=== PATIENT | female | born 1960 | race Caucasian/White ===

== ENCOUNTER → 2022-08-10 10:28 | Outpatient (BNVA) | payer MEDICARE, MEDICAID, SELFPAY | PROVIDERS: PCP Internal Medicine; Visit Provider Internal Medicine | DX: I25.10 Atherosclerotic heart disease of native coronary artery without angina pectoris (principal); E78.5 Hyperlipidemia, unspecified; E11.8 Type 2 diabetes mellitus with unspecified complications | CPT/HCPCS: 93005; 99202 ==

== ENCOUNTER 2022-11-24 16:27 | Outpatient (REF) | payer OTHER, SELFPAY ==
[2022-11-24 18:03] LABS: Creatinine Urine 85.35 mg/dL; Microalbumin Urine < 5.0 mg/L
== END 2022-11-24 16:28 | disposition home or self-care (01) ==
LOC: HO.LAB 16:27
PROVIDERS: Visit Provider Nurse Practitioner Family
DX: R30.0 Dysuria (principal); E11.8 Type 2 diabetes mellitus with unspecified complications
CPT/HCPCS: 82043; 87086

== ENCOUNTER → 2022-12-15 08:35 | Outpatient (REF) | payer OTHER, SELFPAY ==
--- NOTE | ~2022-12-15 | NM_ITS ---
Myocardial perfusion study Indication: Precordial chest pain to evaluate for myocardial ischemia Technique: The patient was brought in for a Lexiscan perfusion study on 12/15/2022. Patient performed low-level exercise and was injected 0.4 mg of Lexiscan intravenously. Within a minute of injection, 25 mCi of sestamibi was given intravenously. Images were obtained using the SPECT gamma camera interlaced with the gating device. Images were obtained in supine position. Resting perfusion study was performed on 12/19/2022. Patient was administered 25 mCi of sestamibi intravenously at rest. Images were then obtained in supine position. Images obtained with and without CT attenuation. Total DLP 98 mGy-cm. Images were processed with the software and compared side to side in short axis, horizontal long axis and vertical long axis views. Findings: The stress perfusion study showed non attenuated images show normal uptake of radiotracer in all segments of LV myocardium. Attenuation corrected images show mildly reduced uptake in the apex of the LV myocardium. The gated study shows normal LV systolic function with calculated LVEF of 63%. LV cavity is normal in size. The gated study shows normal systolic wall thickening and contraction of segments. Resting study shows attenuated corrected images show mildly reduced uptake in the apex of the LV myocardium. Gating at rest reveals normal systolic wall motion with ejection fraction at 66%. The findings are consistent with normal myocardial perfusion. NM/NM karis perf SPECT rest & str Impression: 1. Myocardial perfusion imaging study shows normal myocardial perfusion 2. Gated LVEF is 63% 3. Transient ischemic dilatation not present EKG is nondiagnostic for ischemia
--- NOTE | 2022-12-15 08:41 | CA_ITS ---
Acquisition Time: 2022-12-15 10:15:24 Total Exercise Time: 00:02:00 Test Indications: CP Medications: ASA ATORVASTATIN GABAPENTIN ENALAPRIL METFORMIN Protocol: LEXISCAN Max HR: 148 BPM 93% of Pred: 159 BPM Max BP: 124/068 mmHG Max Work Load: 1.0 METS Pharmacological stress test with Lexiscan injection while sitting and kicking her legs, without anginal symptoms, without arrhythmias, with normotensive response to injection, without EKG changes. Aminophylline 75mg IVP given to reverse Lexiscan. Nuclear images pending. Test reviewed with Dr. Blue. Referred By: Jeronimo Blackmon Overread By: VIRAL COON
--- NOTE | 2022-12-15 08:41 | CA_ITS ---
Transthoracic Echocardiogram Patient (Last, First, Middle): Caroline Licea, Gender: Female Date of : 1960 Age: 62 Procedure Date: 12/15/2022 Procedure Type: Transthoracic Echocardiogram Location: OP Height: 149.86 cm Weight: 65.77 kg BSA: 1.61 m2 Heart Rate: bpm BP: 130 / 70 mmHg Chemical Educator: TO Referring MD: Jeronimo Blackmon MD Symptoms: I25.10 - Atherosclerotic heart disease of [place] coronary artery without... Study Quality: Fair ECG Rhythm: Sinus Conclusions: - The left ventricular systolic function is normal. The calculated ejection fraction is 60% by biplane method. - No obvious valvular pathology seen on this study. Findings Left Ventricle Normal left ventricular cavity size. There is normal left ventricular wall thickness. The left ventricular systolic function is normal. The calculated ejection fraction is 60% by biplane method. There is no evidence of regional wall motion abnormalities. Diastolic function is normal for age. LV peak GLS -17.4%. Right Ventricle Normal right ventricular cavity size and systolic function. Atria Both atria are normal in size. Aortic Valve There is a normal trileaflet aortic valve. There is no aortic valve stenosis. There is no aortic valve regurgitation. Mitral Valve The mitral valve appears normal. There is trace mitral valve regurgitation. There is no mitral valve stenosis. Pulmonic Valve The pulmonic valve is likely normal. Tricuspid Valve Normal tricuspid valve structure. There is mild tricuspid valve regurgitation. There is no evidence of pulmonary hypertension. Great Vessels The asc aorta is normal in size. Small plaque is seen in the sino tubular ridge. Venous The inferior vena cava is normal in size and collapses greater than 50% with inspiration. Pericardium/Pleural There is no evidence of pericardial effusion. Prior Study Comparison No prior study available for comparison. Recommendations, Care & Conclusions No obvious valvular pathology seen on this study. Measurements 2D Linear Measurements IVSd: 0.91 0.6-0.9/0.6-1.0 cm LVIDd: 4.56 3.9-5.3/4.2-5.9 cm LVIDd Index: 2.83 2.4-3.2/2.2-3.1 cm/m2 LVIDs: 3.26 2.0-3.6 cm LVPWd: 0.61 0.7-1.1 cm LA Diam: 2.80 2.7-3.8/3.0-4.0 cm LAIDs Index: 1.74 1.5-2.3 cm/m2 LV Mass: 134.79 67-162/88-224 g LV Mass Index: 83.72 43-95/49-115 g/m2 LVOT Diam: 2.00 3.0+(-)1.3 cm 2D Systolic Function EF 4C: 56.40 >55% EF 2C: 63.90 >55% EF BiP: 59.60 >55% Mitral Valve MV Pk E: 0.51 MV PK A: 0.45 MV Decel Time: 234.00 E/A: 1.10 E'Lateral: 10.30 E'Medial: 8.92 E/E' Med: 5.70 E/E' Lat: 4.90 PHT: 69.00 MVA PHT: 3.19 Decel Motley: 2.16 Aortic Valve AoV Pk Evan: 1.19 AoV Mn Evan: 0.83 AoV VTI: 0.26 AoV Pk Grad: 6.00 Aov Mn Grad: 3.00 MANUEL Cont.VTI: 2.12 LVOT LVOT Pk Evan: 0.77 LVOT Mn Evan: 0.55 LVOT VTI: 0.18 LVOT Pk Grad: 2.00 LVOT Mn Grad: 1.00 LVOT Diam: 2.00 LVOT Area: 3.14 Diastolic Function MV Pk E: 0.51 MV Pk A: 0.45 E/A: 1.10 E'Medial: 8.92 E/E' Med: 5.70 E' Laterial: 10.30 E/E' Lat: 4.90 Right Ventricle TAPSE (mm): 21.20 TVS' Evan: 10.90 Tricuspid Valve TR Pk Evan: 2.40 TR Pk Grad: 23.00 RA Press: 3.00 RVSP: 26.00 Great Vessels Aorta Sinus of Valsalva: 2.72 2.0-3.[address] Ridge: 2.03 1.7-3.4 cm Ao Asc: 3.10 2.1-3.4 cm Updated in Other Vendor System with Status of Final Jeronimo Blackmon MD electronically signed on 12/15/2022 2:28:18 PM with status of Final
== END ==
LOC: HO.CARD 08:35
PROVIDERS: PCP Nurse Practitioner Family; Visit Provider Internal Medicine
DX: R07.2 Precordial pain (principal); I25.119 Atherosclerotic heart disease of native coronary artery with unspecified angina pectoris
CPT/HCPCS: 78452; 93017; 93306; 93356; A9500; J0280; J2785

== ENCOUNTER 2023-01-17 09:50 | Outpatient (REF) | payer OTHER, SELFPAY ==
[2023-01-17 10:08] LABS: MANUAL DIFF FLAG NO
[2023-01-17 10:27] LABS: Basophils Percent Auto 0.6 % (0-2); Eosinophils Absolute Auto 0.2 X10*3/uL (0.0-0.4); Eosinophils Percent Auto 4.2 % (0-4); Hematocrit 38.9 % (37.0-47.0); Hemoglobin 12.2 g/dl (12.0-16.0); Imm Gran Abs Auto 0.01 X10*3/uL (0.00-0.03); Imm Gran Pct Auto 0.2 % (0.0-0.4); Lymphocytes Absolute Auto 2.2 X10*3/uL (1.2-4.9); Lymphocytes Percent Auto 46.6 % (20-40); Mean Corpuscular HGB Conc 31.4 g/dl (31.0-35.0); Mean Corpuscular Hemoglobin 24.6 pg (27.0-33.0); Mean Corpuscular Volume 78.6 fL (80.0-98.0); Mean Platelet Volume 11.1 fL (9.4-12.3); Monocytes Absolute Auto 0.3 X10*3/uL (0.1-1.2); Monocytes Percent Auto 6.7 % (2-11); Neutrophils Percent Auto 41.7 % (45-73); Platelet Count 174 X10*3/uL (160-400); Red Blood Count 4.95 X10*6/uL (4.20-5.50); Red Cell Distribution Width 13.2 % (11.0-16.0); White Blood Count 4.8 X10*3/uL (4.8-10.8)
[2023-01-17 11:17] LABS: Alanine Aminotransferase 17 U/L (0-31); Albumin Level 4.3 g/dL (3.5-5.0); Alkaline Phosphatase 98 U/L (39-117); Anion Gap 12 (12-20); Aspartate Amino Transferase 18 U/L (5-31); Bilirubin Total 0.4 mg/dL (0.0-1.0); Blood Urea Nitrogen 18 mg/dL (9-16); Calcium 9.9 mg/dL (8.4-10.2); Carbon Dioxide 27 mmol/L (22-29); Chloride 105 mmol/L (96-108); Cholesterol 218 mg/dL; Estimated Glomerular Filt Rate > 60; Glucose Fasting 91 mg/dL (60-99); HDL Cholesterol 66 mg/dL; LDL Cholesterol Calculated 138 mg/dl; Sodium 140 mmol/L (135-145); Total Protein 7.7 g/dL (6.5-8.0); Triglycerides 74 mg/dL
[2023-01-17 11:34] LABS: TSH reflex Free T4 1.44 uIU/mL (0.32-4.0); Vitamin D 25-OH Total 27.2 ng/mL (>30)
[2023-01-17 11:47] LABS: Vitamin B12 205 pg/mL (200-900)
== END 2023-01-17 09:51 | disposition home or self-care (01) ==
LOC: HO.LAB 09:50
PROVIDERS: PCP Nurse Practitioner Family; Visit Provider Nurse Practitioner Family
DX: E11.8 Type 2 diabetes mellitus with unspecified complications (principal); E55.9 Vitamin D deficiency, unspecified; E78.5 Hyperlipidemia, unspecified; M54.2 Cervicalgia
CPT/HCPCS: 36415; 80053; 80061; 82306; 82607; 82746; 84443; 85025

== ENCOUNTER → 2023-01-24 12:57 | Outpatient (BNVA) | payer OTHER, MEDICAID, SELFPAY | PROVIDERS: PCP Nurse Practitioner Family; Referring Provider Nurse Practitioner Family; Visit Provider Nurse Practitioner Family | DX: I25.10 Atherosclerotic heart disease of native coronary artery without angina pectoris (principal); I10 Essential (primary) hypertension; E78.5 Hyperlipidemia, unspecified; E11.8 Type 2 diabetes mellitus with unspecified complications | CPT/HCPCS: 99212 ==

== ENCOUNTER 2023-01-27 14:00 | Outpatient (RCR) | payer OTHER, SELFPAY ==
--- NOTE | 2022-12-23 13:54 | MHC.OT.EP ---
[address] [phone] Occupational Therapy Plan of Care Patient Name: Caroline Licea Date of Evaluation: 12/23/22 Diagnosis: Bilateral carpal tunnel syndrome Pain Location: Bilateral hands. Left > right . Low pain at this time. Pain 2 weeks ago with writing and lifting with left hand 6/10 Pain Score: 3 Pain Scale Used: Numeric (0 - 10) Aggravating Factors: Heavy lifting or gripping , writing. Avoiding over the past 2 wks . Alleviating Factors: Gabapentin Assessment: Pt is a 62 yo female with a diagnosis of bilateral CTS. Today she presents with complaints of low moderate left hand pain , occasional hand paresthesia and demonstrates submax production grip and pinch strength She reports low motivation with exercise however states her goal is to have better hand strength and be pain free with lifting household items that have weight Extra time was required with translator/interpreter for specifics on sx and limitations Pt will benefit from OT to address pain and strength for ease with daily activities. Frequency and Duration: The patient will be seen 2 x wk x 4 wks Short Term Goals: Demo use of thermal modalities for CTS sx Demo indep with HEP with visual cues Tolerate eccentric UE ex with yellow Theraband ex To lift up to 3 lb frequently Manager Educational Goals: Demo indep with self management of CTS Dec complaint of pain and hand paresthesia to occasional Lift up to 5 lb occasionally Inc ease with daily activities with modifications as needed Quick DASH to < 20 pts Treatment Plan: Therapeutic Exercise Therapeutic Activity Home Exercise Program Splinting Patient Education ADL Training MHP Cold Packs Soft Tissue Mobilization Electronically Signed By: Sindi Monreal OT CHT CLT Please Sign and return to therapist. Thank you once again for your referral.
--- NOTE | 2023-01-20 15:22 | MHC.OT.EP ---
[address] [phone] Occupational Therapy Plan of Care Patient Name: Caroline Red Date of Evaluation: 01/20/23 Diagnosis: Bilateral carpal tunnel syndrome Pain Location: Bilateral hands. Left > right . Low pain at this time. Pain 2 weeks ago with writing and lifting with left hand 6/10 Pain Score: 3 Pain Scale Used: Numeric (0 - 10) Aggravating Factors: Heavy lifting or gripping , writing. Avoiding over the past 2 wks . Alleviating Factors: Gabapentin Assessment: Pt is a 62 yo female with a diagnosis of bilateral CTS. 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 Frequency and Duration: The patient will be seen 2x wk x 2 wks Short Term Goals: Demo use of thermal modalities for CTS sx MET Demo indep with HEP with visual cues Tolerate eccentric UE ex with yellow Theraband ex To lift up to 3 lb frequently Piling Cutter Goals: Demo indep with self management of CTS Dec complaint of pain and hand paresthesia to occasional Lift up to 5 lb occasionally Inc ease with daily activities with modifications as needed Quick DASH to < 20 pts Treatment Plan: Therapeutic Exercise Ultrasound Electronically Signed By: Sindi Monreal OT CHT CLT Please Sign and return to therapist. Thank you once again for your referral.
--- NOTE | 2023-01-27 14:54 | MHC.OT.DC ---
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 Reports pain radiating to left proximal arm , shoulder. Cont mild hand and forearm edema Reports constant paresthesias Unable to progress treatment for left CTS, pain with tendon and modified median nerve glides Left shoulder pain limiting LUE use and ther ex. Pt is indep with night orthosis for CTS sx and tendon and nerve glides ,limited by shoulder pain. Pt discussed her LUE pain including shoulder pain with PCP . Pt to be referred to Rheumatology for Fibromyalgia symptoms Pt not significantly benefiting from OT at this time. Electronically Signed By: Sindi Monreal OT CHT CLT Reviewed/agree with student documentation: Therapist: Please Sign and return to therapist, thank you for your referral.
== END 2023-01-27 14:59 | disposition home or self-care (01) ==
LOC: HO.OT 14:00
PROVIDERS: PCP Nurse Practitioner Family; Visit Provider Nurse Practitioner Family
DX: G56.03 Carpal tunnel syndrome, bilateral upper limbs (principal)
CPT/HCPCS: 29125; 97035; 97110; 97140; 97166; 97760

== ENCOUNTER 2023-03-03 15:37 | Outpatient (REF) | payer OTHER, SELFPAY ==
--- NOTE | ~2023-03-03 | MM_ITS ---
EXAMINATION: MM SCREENING DIGITAL BREAST TOMOSYNTHESIS, BILATERAL CLINICAL INFORMATION: Screening. Asymptomatic. The lifetime risk of breast cancer based on the Tyrer-Cuzick Model is 4.4%. COMPARISON: Mammography: There are no prior mammograms for comparison. TECHNIQUE: Digital breast tomosynthesis is performed in both the craniocaudal and mediolateral oblique views along with computer-aided detection (CAD). Synthesized 2D images are generated from the tomosynthesis. FINDINGS: The breasts are heterogeneously dense, which may obscure small masses (ACR BI-RADS breast composition Category c). There are no significant masses, abnormal calcifications, or other abnormalities. MM/MM tomosynthesis screening BI IMPRESSION: No mammographic evidence of malignancy. ASSESSMENT: BI-RADS BI-RADS 1 - Negative RECOMMENDATION: Routine annual mammography screening. 1 year F/U This examination should not preclude the clinical evaluation of a suspicious palpable abnormality. This patient's information was entered into a reminder system with a target due date for their next mammogram.
== END 2023-03-03 15:38 | disposition home or self-care (01) ==
LOC: HO.MAMMO 15:37
PROVIDERS: PCP Nurse Practitioner Family; Visit Provider Nurse Practitioner Family
DX: Z12.31 Encounter for screening mammogram for malignant neoplasm of breast (principal)
CPT/HCPCS: 77063; 77067

== ENCOUNTER → 2023-03-03 15:45 | Outpatient (BNV) | payer OTHER, SELFPAY | PROVIDERS: PCP Nurse Practitioner Family; Visit Provider Radiology Diagnostic Radiology | DX: Z12.31 Encounter for screening mammogram for malignant neoplasm of breast (principal) | CPT/HCPCS: 77063; 77067 ==

== ENCOUNTER 2023-03-08 10:14 | Outpatient (AMB) | payer OTHER, SELFPAY ==
--- NOTE | 2023-03-08 10:40 | A.OFFVIS_ITS ---
Intake Vital Signs 03/08/23 10:46 Height 4 ft 11 in Weight 146 lb BMI 29.5 BP 100/79 Blood Pressure Location Lt brachial Position Sitting Respiration 15 Pulse 84 Pulse Source Pulse Oximeter Temp 97.9 F Temp Source Skin Pulse Oximetry (%) 96 Oxygen Delivery Method Room Air Intake Visit Reasons: Joint Pain Relay Dispatcher Required: Yes Relay Dispatcher Name: Tae [id number] Allergies No Known Allergies [No Known Allergies*] Allergy (Verified 03/08/23 10:41) Medication List - Last Reconciled 03/08/23 by Shilpa Cristobal RN alcohol swabs (Alcohol Prep Pads) 1 pad topical TID aspirin 81 mg PO DAILY atorvastatin 80 mg PO DAILY blood pressure monitor (Blood Pressure Kit) As directed blood sugar diagnostic (OneTouch Ultra Test strips) As directed blood-glucose meter (JobzippersTouch Ultra2 Meter) As directed cholecalciferol (vitamin D3) 25 mcg PO DAILY enalapril maleate 2.5 mg PO DAILY gabapentin 600 mg PO DAILY lancets (FreeStyle Lancets) test daily metformin 500 mg PO DAILY miscellaneous medical supply 1 ea miscellaneous DAILY sertraline 25 mg PO DAILY Shower Chair As directed temazepam 30 mg PO BEDTIME PRN HPI HPI Comments History of Present Illness Details This is a 62-year-old female was referred for evaluation of fibromyalgia. She states that she was diagnosed with fibromyalgia in 2011 in [place]. She was started on gabapentin 600 mg daily and she would take temazepam at night. She took gabapentin for years and she stopped it about a year ago when [place] the [place] She did not feel a difference in her symptoms when stopping it. Currently she is complaining of neck pain radiating to her left shoulder and left hand. She has pain in her knees with walking. She was referred to a psychologist and a psychiatrist by her PCP. She stated that she had a psychiatrist and a psychologist back in [place]. [facility] Medical History Other and unspecified hyperlipidemia Type 2 diabetes mellitus with unspecified complications Surgical History History of cholecystectomy History of colonoscopy Previous section Family History Mother Hypertension Thyroid activity decreased Rheumatoid arthritis Father Coronary artery disease Diabetes mellitus Brother Arrhythmia Social History Housing: Apartment Alcohol intake: never Patient Tobacco Use Status: Never used Tobacco service: No Current occupational status: unemployed Cognitive needs: No Hearing needs: No Vision needs: No Female Reproductive History Menstrual Total pregnancies: 3 Review of Systems Const Reports headache(s) Eyes Reports itchy eyes ENT Reports dizziness, Reports headache(s) and Reports neck pain GI Reports heartburn, Reports diarrhea and Reports nausea Musc Reports back pain, Reports myalgias, Reports arthralgias, Reports neck pain and Reports stiffness Neuro Reports dizziness and Reports headache(s) Psych Reports anxiety and Reports depression Aller/Immun Reports itchy eyes Physical Exam Vital Signs: Last Vital Signs Temp 97.9 F 03/08/23 10:46 Pulse 84 03/08/23 10:46 Resp 15 03/08/23 10:46 BP 100/79 03/08/23 10:46 Pulse Ox 96 03/08/23 10:46 Oxygen Delivery Method Room Air 03/08/23 10:46 Const General: cooperative and healthy appearing Nutritional Appearance: overweight Orientation/consciousness: patient oriented x3 Limitations: no limitations HEENT Head: Yes normocephalic and Yes atraumatic Mouth: moist mucous membranes Resp Effort & Inspection: normal respiratory effort and able to speak in complete sentences Auscultation: clear to auscultation bilaterally Cardio Rate: regular rate Rhythm: regular rhythm Skin General skin exam: no rashes or lesions noted Neuro General: patient oriented x3 Extrem Other: No active synovitis. Limited neck rotation, flexion and extension and lateral flexion Negative Spurling's test Multiple fibromyalgia tender points No active synovitis bilateral knee crepitus Assessment & Plan Assessment & Plan (1) Fibromyalgia: Code(s): M79.7 - Fibromyalgia Plan: This is a 62-year-old female who was referred for evaluation of fibromyalgia. She 0 was diagnosed with fibromyalgia in [place] since 2011. Was taking gabapentin 600 mg daily and temazepam nightly. She has not taken gabapentin for about a year without worsening symptoms. Discussed management of fibromyalgia with patient. Is a noninflammatory, non- autoimmune central afferent processing disorder leading to a diffuse pain syndrome. Patient was referred to a psychiatrist and psychologist by her PCP. . Try to follow sleep hygiene practices. Consider a referral for a sleep study by her PCP. Discuss CBT for sleep with psychotherapist. Patient would benefit from increased physical activity, either through formal physical therapy or by joining a gym. Advised patient that she should start activity slowly and increase as tolerated. Consider low-impact exercises such as walking, swimming, aqua therapy stretching, yoga. (2) Degenerative cervical disc: Code(s): M50.30 - Other cervical disc degeneration, unspecified cervical region Plan: Check a neck x-ray Referred to PT (3) Bilateral primary osteoarthritis of knee: Code(s): M17.0 - Bilateral primary osteoarthritis of knee Plan: Check bilateral knee x-rays and advised patient to try using [id number] Voltaren gel Plan I spent 46 minutes reviewing patient's chart, evaluating patient, ordering diagnostic workup, counseling patient and documenting in the chart Orders: Orders PT Evaluation and Treatment Today M50.30 - Other cervical disc degeneration, unspecified cervical region XR cervical spine 4V Today M50.30 - Other cervical disc degeneration, unspecified cervical region XR lumbar spine 4V min Today G89.29 - Other chronic pain, M54.50 - Low back pain, unspecified XR knee LT 3V Today M17.0 - Bilateral primary osteoarthritis of knee XR knee RT 3V Today M17.0 - Bilateral primary osteoarthritis of knee XR knee standing BI Today M17.0 - Bilateral primary osteoarthritis of knee Coding Level of Care Code New Pt Level 4 (59228) Diagnoses Fibromyalgia M79.7 Degenerative cervical disc M50.30 Bilateral primary osteoarthritis of knee M17.0
[2023-03-08 10:46] VITALS: BP 100/79; PULSE 84; RESP 15; TEMP 36.6; O2SAT 96; BMI 29.5
== END 2023-03-08 11:29 | disposition home or self-care (01) ==
PROVIDERS: PCP Nurse Practitioner Family; Visit Provider Student in an Organized Health Care Education/Training Program
DX: M79.7 Fibromyalgia (principal); M50.30 Other cervical disc degeneration, unspecified cervical region; M17.0 Bilateral primary osteoarthritis of knee
CPT/HCPCS: 99204

== ENCOUNTER → 2023-03-08 10:14 | Outpatient (BNVA) | payer OTHER, SELFPAY | PROVIDERS: PCP Nurse Practitioner Family; Visit Provider Student in an Organized Health Care Education/Training Program | DX: M79.7 Fibromyalgia (principal); M50.30 Other cervical disc degeneration, unspecified cervical region; M17.0 Bilateral primary osteoarthritis of knee | CPT/HCPCS: 99202 ==

== ENCOUNTER 2023-03-31 14:05 | Outpatient (REF) | payer OTHER, SELFPAY ==
--- NOTE | ~2023-03-31 | XR_ITS ---
EXAMINATION: XR LUMBOSACRAL SPINE WITH OBLIQUES CLINICAL INFORMATION: Low back pain COMPARISON: None available. TECHNIQUE: AP, both oblique, and lateral views of the lumbar spine. Lateral view of the lumbosacral junction. FINDINGS: There is curvature of the lower lumbar spine to the left. Bone alignment is otherwise normal. No fracture or dislocation. Degenerative disc disease and spondylosis at L4-L5. Lower lumbar spine facet arthritis. XR/XR lumbar spine 4V min IMPRESSION: Scoliosis and degenerative changes.
--- NOTE | ~2023-03-31 | XR_ITS ---
EXAMINATION: XR CERVICAL SPINE CLINICAL INFORMATION: Degenerative disc disease COMPARISON: None available. TECHNIQUE: 5 views of the cervical spine were obtained. FINDINGS: Bone alignment is normal. No fracture or dislocation. Degenerative spondylosis at C 5 6 and C6-C7. Disc spaces are normal. Mild bilateral neuroforaminal narrowing from bony osteophyte at C5-C6. Prevertebral soft tissues are normal. XR/XR cervical spine 4V IMPRESSION: Degenerative spondylosis at C5-C6 and C6-C7.
--- NOTE | ~2023-03-31 | XR_ITS ---
EXAMINATION: Bilateral knee x-ray CLINICAL INFORMATION: Pain COMPARISON: None. TECHNIQUE: 4 views of each knee FINDINGS: Right: Bone alignment is normal. No fracture or dislocation. There is joint space narrowing at the medial femoral tibial joint. There are small osteophytes at the patellofemoral joint. There is no joint effusion. Left: Bone alignment is normal. No fracture or dislocation. Joint space narrowing at the medial femoral tibial joint. There are small osteophytes at the patellofemoral joint. There is no joint effusion. XR/XR knee RT 4V IMPRESSION: Bilateral arthritis at the medial femoral tibial and patellofemoral joints.
--- NOTE | ~2023-03-31 | XR_ITS ---
EXAMINATION: Bilateral knee x-ray CLINICAL INFORMATION: Pain COMPARISON: None. TECHNIQUE: 4 views of each knee FINDINGS: Right: Bone alignment is normal. No fracture or dislocation. There is joint space narrowing at the medial femoral tibial joint. There are small osteophytes at the patellofemoral joint. There is no joint effusion. Left: Bone alignment is normal. No fracture or dislocation. Joint space narrowing at the medial femoral tibial joint. There are small osteophytes at the patellofemoral joint. There is no joint effusion. XR/XR knee LT 3V IMPRESSION: Bilateral arthritis at the medial femoral tibial and patellofemoral joints.
== END 2023-03-31 14:06 | disposition home or self-care (01) ==
LOC: HO.XRAY 14:05
PROVIDERS: Visit Provider Student in an Organized Health Care Education/Training Program
DX: G89.29 Other chronic pain (principal); M54.50 Low back pain, unspecified; M50.30 Other cervical disc degeneration, unspecified cervical region; M17.0 Bilateral primary osteoarthritis of knee
CPT/HCPCS: 72050; 72110; 73562; 73564

== ENCOUNTER → 2023-04-12 12:41 | Outpatient (BNVA) | payer OTHER, SELFPAY | PROVIDERS: PCP Nurse Practitioner Family; Visit Provider Nurse Practitioner Family ==

== ENCOUNTER 2023-04-17 10:32 | Outpatient (REF) | payer OTHER, SELFPAY ==
[2023-04-17 11:25] LABS: Estimated Average Glucose 111 mg/dL; Hemoglobin A1c % 5.5 % (<6.0)
[2023-04-17 12:43] LABS: Alanine Aminotransferase 19 U/L (0-31); Albumin Level 4.5 g/dL (3.5-5.0); Alkaline Phosphatase 99 U/L (39-117); Anion Gap 13 (12-20); Aspartate Amino Transferase 22 U/L (5-31); Bilirubin Total 0.3 mg/dL (0.0-1.0); Blood Urea Nitrogen 13 mg/dL (9-16); Carbon Dioxide 26 mmol/L (22-29); Chloride 104 mmol/L (96-108); Cholesterol 207 mg/dL (<200); Estimated Glomerular Filt Rate > 60; Glucose Fasting 92 mg/dL (60-99); HDL Cholesterol 74 mg/dL (>40); LDL Cholesterol Calculated 115 mg/dL (<100); Potassium 4.1 mmol/L (3.3-5.1); Sodium 139 mmol/L (135-145); Total Protein 8.1 g/dL (6.5-8.0); Triglycerides 94 mg/dL (<150); Vitamin D 25-OH Total 25.5 ng/mL (>30)
== END 2023-04-17 10:33 | disposition home or self-care (01) ==
LOC: HO.LAB 10:32
PROVIDERS: PCP Nurse Practitioner Family; Visit Provider Nurse Practitioner Family
DX: I25.10 Atherosclerotic heart disease of native coronary artery without angina pectoris (principal); R79.89 Other specified abnormal findings of blood chemistry; E11.8 Type 2 diabetes mellitus with unspecified complications; E55.9 Vitamin D deficiency, unspecified
CPT/HCPCS: 36415; 80053; 80061; 82306; 83036

== ENCOUNTER 2023-04-26 14:11 | Outpatient (AMB) | payer OTHER, SELFPAY ==
[2023-04-26 14:12] VITALS: BP 102/68; PULSE 70; O2SAT 99; BMI 30.1
--- NOTE | 2023-04-26 14:12 | MHC.PC.OV ---
Vital Signs 04/26/23 14:12 Height 4 ft 11 in Weight 149 lb BMI 30.1 BP 102/68 Blood Pressure Location Lt brachial Position Sitting Pulse 70 Pulse Source Pulse Oximeter Temp Source Skin Pulse Oximetry (%) 99 Oxygen Delivery Method Room Air Intake Visit Reasons: F/U on DM, HLD, HTN Intake Note: Patient is here to follow up on DM, HLD, HTN [employer] Liaison Officer Required: Yes Aboriginal [employer] Liaison Officer Language: Wallisian Allergies No Known Allergies [No Known Allergies*] Allergy (Verified 04/26/23 14:30) Medication List - Last Reconciled 04/26/23 by RENETTA Alexander alcohol swabs (Alcohol Prep Pads) 1 pad topical TID aspirin 81 mg PO DAILY atorvastatin 80 mg PO DAILY bisacodyl (Dulcolax (bisacodyl)) 10 mg (2 x 5 mg) PO ONCE 1 day blood pressure monitor (Blood Pressure Kit) As directed blood sugar diagnostic (OneTouch Ultra Test strips) As directed blood-glucose meter ([employer] SoftwareTouch Ultra2 Meter) As directed cholecalciferol (vitamin D3) 25 mcg PO DAILY enalapril maleate 2.5 mg PO DAILY gabapentin 600 mg PO DAILY lancets (FreeStyle Lancets) test daily metformin 500 mg PO DAILY miscellaneous medical supply 1 ea miscellaneous DAILY polyethylene glycol 3350 (Miralax) 238 grams PO ONCE sertraline 25 mg PO DAILY Shower Chair As directed temazepam 30 mg PO BEDTIME PRN Tobacco use date assessed: 04/26/23 Dental Screening Dental Screen Date: 04/26/23 Did you have a dental visit in the last 12 months?: Yes Did you have a dental problem in the last 6 months where you did not have access to dental care?: No Was dental information given to patient?: Patient has dentist HPI F/U on DM, HLD, HTN HPI Details Patient is a 62-year-old female presents today for a routine follow-up. Medical history significant for atherosclerotic cardiovascular disease - patient reports history of heart attack when having cholecystectomy in [place] - followed by [facility], hyperlipidemia, diabetes type 2, insomnia, depression, fibromyalgia, polyarthralgia - followed by rheumatology. Patient has counseling at [facility], patient reports that she is on waiting list for psychiatrist.? Patient denies shortness of breath or chest pain. In addition, patient reports left thigh lateral aspect pain for the past couple weeks, she denies injury, reports that gabapentin and advil not helping much, reports history of injection in the past back in 2013 for the same reason. Recent blood work results from 03/2023 reviewed with the patient. Patient is a Wallisian-speaking and online full time staff interpreter [id number] was incorporated into this visit. ? [facility] Medical History Other and unspecified hyperlipidemia Type 2 diabetes mellitus with unspecified complications Surgical History History of colonoscopy Previous section History of cholecystectomy Family History Mother Hypertension Thyroid activity decreased Rheumatoid arthritis Father Coronary artery disease Diabetes mellitus Brother Arrhythmia Social History Housing: Apartment Alcohol intake: never Patient Tobacco Use Status: Never used Tobacco service: No Current occupational status: unemployed Cognitive needs: No Hearing needs: No Vision needs: No Questionnaire Thrive Questionnaire Date Thrive assessed: 11/24/22 AUDIT C Alcohol Use Questionnaire (AUDIT-C) 1. How often do you have a drink containing alcohol?: Never 3. How often do you have six or more drinks on one occasion?: Never Total Score: 0 Score Reviewed/Action Taken: No NOREEN-7 AMB Questionnaire NOREEN-7 Date NOREEN - 7 assessed: 01/24/23 (pt is seeing psychiatrist) Source: Developed by Drs. Nate Mason, Edie Marcos, Lisandro Quevedo and colleagues, with an educational miriam from [employer]. Review of Systems Const Denies body aches, Denies chills, Denies fever(s) and Denies headache(s) Eyes Denies change in vision ENT Denies dizziness, Denies otalgia, Denies headache(s), Denies nasal discharge, Denies sinus pain and Denies sore throat Card Denies chest pain, Denies edema, Denies lightheadedness and Denies dyspnea Resp Denies cough and Denies dyspnea GI Denies constipation, Denies diarrhea, Denies nausea and Denies vomiting Musc Reports as per HPI, Denies myalgias and Reports arthralgias Skin/Breast Denies lesions and Denies rash Neuro Denies dizziness and Denies headache(s) Physical exam (Primary Care) Vital Signs: Last Vital Signs Pulse 70 04/26/23 14:12 BP 102/68 04/26/23 14:12 Pulse Ox 99 04/26/23 14:12 Oxygen Delivery Method Room Air 04/26/23 14:12 BMI result Body Mass Index 30.1 Tobacco/Smoking Status: Tobacco use Status Tobacco use date assessed 04/26/23 04/26/23 14:13 Patient Tobacco Use Status Never used Tobacco 04/26/23 14:13 Thrive Assessment: Date of Thrive Assessment Date Thrive assessed 11/24/22 04/26/23 14:13 Const General: cooperative and no acute distress Orientation/consciousness: patient oriented x3 HENMT Head: Yes normocephalic and Yes atraumatic Face and sinus: Yes sinuses nontender Mouth: oropharynx normal and moist mucous membranes Throat: Yes posterior oropharynx normal Eyes General: appearance normal, both eyes and all related structures Pupils: Equal, round and reactive pupils present EOM: EOMs intact bilaterally Neck Neck: Yes normal visual inspection, Yes full ROM and Yes no lymphadenopathy Resp Effort & Inspection: normal respiratory effort and able to speak in complete sentences Auscultation: clear to auscultation bilaterally, no crackles, no rales, no rhonchi and no wheezes Cardio Rate: regular rate Rhythm: regular rhythm Heart sounds: S1 normal heart sound present, S2 normal heart sound present and no murmurs GI Auscultation: normal bowel sounds Skin General skin exam: no rashes or lesions noted Neuro General: patient oriented x3 Cranial nerves: Yes Equal, round and reactive pupils present Gait exam (Neuro): Normal gait present Extrem Other: Left thigh tender to palpation, full range of motion General: Yes full ROM and No edema Assessment and Plan Assessment & Plan (1) Fibromyalgia: Code(s): M79.7 - Fibromyalgia Plan: On gabapentin 600 mg daily - patient reports that she takes gabapentin as needed only (2) Depression: Code(s): F32.A - Depression, unspecified Qualifiers: Depression Type: other depression Qualified Code(s): F32.89 - Other specified depressive episodes Plan: Continue to follow-up with savage Morley at [facility], on waiting list for Psychiatry Continue sertraline 25 mg daily (3) Insomnia: Code(s): G47.00 - Insomnia, unspecified Plan: Continue to follow-up with counseling Milli at [facility], on waiting list for Psychiatry Temazepam 30 mg at bedtime p.r.n.-educated about depends and seen memory loss - prescribed by PCP until established with Psychiatry (4) Type 2 diabetes mellitus with unspecified complications: Code(s): E11.8 - Type 2 diabetes mellitus with unspecified complications Plan: A1c 5.5 03/2023 Continue metformin 500 mg daily Low carbohydrate diet Patient reports that she is scheduled for diabetic eye exam for 03/2024 (5) Other and unspecified hyperlipidemia: Code(s): E78.5 - Hyperlipidemia, unspecified Plan: LDL 115 03/2023, goal less than 70 Continue atorvastatin to 80 mg daily Low-cholesterol diet (6) Atherosclerotic cardiovascular disease: Code(s): I25.10 - Atherosclerotic heart disease of [place] coronary artery without angina pectoris Plan: Aspirin 81 mg daily Atorvastatin 80 mg daily Continue to follow-up with [facility] (7) Hypertension: Code(s): I10 - Essential (primary) hypertension Plan: Enalapril 2.5 mg daily Low-sodium diet (8) Low vitamin D level: Code(s): R79.89 - Other specified abnormal findings of blood chemistry Plan: Continue vitamin D3 25 mcg daily Recheck level in 3 months (9) Left thigh pain: Code(s): M79.652 - Pain in left thigh Plan: Referral to physical therapy Referral to Orthopedics Start cyclobenzaprine at bedtime p.r.n.-educated about drowsiness Patient is to continue gabapentin Encouraged heating packs p.r.n. Plan Follow-up in 3 months or sooner as needed Orders: Orders Lipid Panel 3 Months E78.5 - Hyperlipidemia, unspecified Hemoglobin A1c 3 Months E11.8 - Type 2 diabetes mellitus with unspecified complications PT Evaluation and Treatment Today M79.652 - Pain in left thigh Vitamin D 25-OH Total 3 Months R79.89 - Other specified abnormal findings of blood chemistry Comprehensive [place]. Panel Fast 3 Months E11.8 - Type 2 diabetes mellitus with unspecified complications Referrals Orthopedics Referral M79.652 - Pain in left thigh Medications: New aspirin 81 mg PO DAILY 90 tabs 2RF I25.10 - Atherosclerotic heart disease of [place] coronary artery without angina pectoris cyclobenzaprine 5 mg PO BEDTIME PRN 10 tabs 0RF muscle spasm M79.652 - Pain in left thigh enalapril maleate 2.5 mg PO DAILY 90 tabs 1RF I10 - Essential (primary) hypertension gabapentin 600 mg PO DAILY 30 tabs 0RF M79.7 - Fibromyalgia Refilled sertraline 25 mg PO DAILY 90 tabs 1RF F32.A - Depression, unspecified atorvastatin 80 mg PO DAILY 90 tabs 1RF E78.5 - Hyperlipidemia, unspecified cholecalciferol (vitamin D3) 25 mcg PO DAILY 90 tabs 0RF R79.89 - Other specified abnormal findings of blood chemistry metformin 500 mg PO DAILY 90 tabs 0RF E11.8 - Type 2 diabetes mellitus with unspecified complications Coding Level of Care Code Est Pt Level 4 (55224) Diagnoses Fibromyalgia M79.7 Other depression F32.89 Depression Type: other depression Insomnia G47.00 Type 2 diabetes mellitus with unspecified complications E11.8 Other and unspecified hyperlipidemia E78.5 Atherosclerotic cardiovascular disease I25.10 Hypertension I10 Low vitamin D level R79.89 Left thigh pain M79.652
== END 2023-04-26 14:54 | disposition home or self-care (01) ==
PROVIDERS: PCP Nurse Practitioner Family; Visit Provider Nurse Practitioner Family
DX: M79.7 Fibromyalgia (principal); F32.89 Other specified depressive episodes; G47.00 Insomnia, unspecified; E11.8 Type 2 diabetes mellitus with unspecified complications; E78.5 Hyperlipidemia, unspecified; I25.10 Atherosclerotic heart disease of native coronary artery without angina pectoris; I10 Essential (primary) hypertension; R79.89 Other specified abnormal findings of blood chemistry; M79.652 Pain in left thigh
CPT/HCPCS: 99214

== ENCOUNTER 2023-05-25 10:03 | Outpatient (AMB) | payer OTHER, SELFPAY ==
--- NOTE | 2023-05-25 10:05 | A.OFFVIS_ITS ---
Intake Vital Signs 05/25/23 10:09 Height 4 ft 11 in Weight 149 lb BMI 30.1 Intake Visit Reasons: Pain in left thigh Intake Note: Caroline skelton 62 year old female presents today as a new patient with complaint of left thigh pain. Patient reports intermittent pain at the lateral aspect of upper leg for years. Denies injury. No previous tx. Finds very little to no relief with advil or gabapentin. Networks Software Consultant Name: Alison ID#[id number] Allergies No Known Allergies [No Known Allergies*] Allergy (Verified 05/25/23 10:10) HPI Pain in left thigh HPI Details 62-year-old female who presents to the [facility] today with an marketing operations consultant for evaluation of left thigh pain. She states she has intermittent pain at the lateral aspect of her thigh which is aggravated with stair use and at night. She also c/o occasional numbness and tingling in her thigh which radiates in her left leg. She denies any groin pain, lower back pain or recent injury and has not had any treatment in the past. She finds minimal pain with Advil and gabapentin. She had an injection in the past which did not provide her any relief. She has a history of diabetes. Her sugar level is well controlled. [facility] Medical History Other and unspecified hyperlipidemia Type 2 diabetes mellitus with unspecified complications Surgical History History of colonoscopy Previous section History of cholecystectomy Family History Mother Hypertension Thyroid activity decreased Rheumatoid arthritis Father Coronary artery disease Diabetes mellitus Brother Arrhythmia Social History Housing: Apartment Alcohol intake: never Patient Tobacco Use Status: Never used Tobacco service: No Current occupational status: unemployed Cognitive needs: No Hearing needs: No Vision needs: No Review of Systems Const All systems reviewed & are unremarkable except as noted in HPI and below Physical Exam Vital Signs: BMI result Body Mass Index 30.1 Const General: cooperative, healthy appearing, comfortable, no acute distress, well developed and alert Orientation/consciousness: patient oriented x3 HEENT Head: Yes normal to inspection, Yes normocephalic and Yes atraumatic Eyes General: appearance normal, both eyes and all related structures Neck Neck: Yes normal visual inspection and Yes no lymphadenopathy Resp Effort & Inspection: normal respiratory effort and able to speak in complete sentences Cardio Rate: regular rate Peripheral pulses: Peripheral pulses 2+ throughout GI Inspection: Yes normal to inspection Palpation (GI): Soft to palpation Skin General skin exam: no rashes or lesions noted Neuro General: patient oriented x3 Extrem Other: Left hip: Normal to inspection. No pain with ROM of the hip. Pain along the greater trochanter. No pain with hip flexion or abduction. Negative tenderness along the SI joint, negative SLR. NVI. Psych Appearance: grossly normal Mental Status: mental status grossly normal Office Procedures Joint Injection/Drain Joint Injection/Drain Details: left trochanteric bursa Prep: site was prepped using aseptic technique, ethochloride spray was applied and injection warnings given Injected: 40 mg of, DepoMedrol, with 8 mL of and 1% plain lidocaine Procedure: The patient tolerated the procedure well and there was some relief with the local anesthesia Coding 53725 - Glenohumeral/Tronchanteric Bursa/Intraarticular Procedure code (CPT) selection complete Results Reviewed Results Reviewed: 05/25/23 10:25 Lidocaine HCl 2 % MPF [Xylocaine 2 % MPF] 5 ml .ROUTE .STK-MED ONE methylPREDNISolone acetate [DEPO-MedroL] 40 mg .ROUTE .STK-MED ONE Assessment & Plan Assessment & Plan (1) Trochanteric bursitis, left hip: Code(s): M70.62 - Trochanteric bursitis, left hip Plan We discussed options today which include steroid injection. They did consent to move forward with the injection, which was tolerated well. I recommended rest, ice and elevation and OTC anti-inflammatories PRN for discomfort. She was also given an order for physical therapy with some home exercises in the office to day. We also discussed their diabetes and the effect the steroid can have on their blood glucose levels; therefore, they will continue to monitor these very closely over the next 72 hours. If there are any concerns, they should report to the ED immediately. Orders: Orders PT Evaluation and Treatment Today M70.62 - Trochanteric bursitis, left hip Patient Instructions: Scribed for Aura Alvarado PA-C, by shelton Perez scribe, on 05/25/2023. Aura Jansen PA-C, have personally reviewed and agree with the information entered by the scribe. Coding Level of Care Code New Pt Level 3 (65194) Diagnoses Trochanteric bursitis, left hip M70.62 CPT Codes Coding - Joint 7: 66510 - Glenohumeral/Tronchanteric Bursa/Intraarticular ([id number])
[2023-05-25 10:09] VITALS: BMI 30.1
== END 2023-05-25 10:42 | disposition home or self-care (01) ==
PROVIDERS: PCP Nurse Practitioner Family; Visit Provider Physician Assistant
DX: M70.62 Trochanteric bursitis, left hip (principal)
CPT/HCPCS: 20610; 99203

== ENCOUNTER → 2023-05-25 10:03 | Outpatient (BNVA) | payer OTHER, SELFPAY | PROVIDERS: PCP Nurse Practitioner Family; Visit Provider Physician Assistant | DX: M70.62 Trochanteric bursitis, left hip (principal) | CPT/HCPCS: 20610; 99202; J1020 ==

== ENCOUNTER 2023-06-02 13:00 | Outpatient (RCR) | payer OTHER, SELFPAY ==
--- NOTE | 2023-07-11 11:26 | MHC.PT.DC ---
[facility] [place] Office [place] Office [place] Office [address] Maria Antonia Nava [address] [phone] F: [phone] F: [phone] F: [phone] F: [phone] Physical Therapy Discharge Report Diagnosis: cervical degenerative disc disease (MD Dx) LEFT cervical radiculopathy and LEFT shoulder adhesive capsulitis (PT Dx) Date of Surgery: Date of Evaluation: 03/31/23 Date of Discharge: 07/11/23 Treatments to Date: 6 Cancellations to Date: No Shows to Date: Discharge Status: Improved Function Independent with HEP Discharge Summary: Patient is discharged from PT at this time as she demonstrated improvement and had plans for discharge but did not make any more PT visits. The PT assessment during her last treatment on 06/02/23 reads, Pt reports improvement in overall sxs and mobility. Declines further rx as she reports she has not eaten and wants to go get some food as she is very hungry. Declined manual therapies. Anticipate d/c in 2 visits. Electronically signed by: Emma Juarez, PT, DPT Please sign and return to therapist. Thank you for your referral.
== END 2023-07-11 11:26 | disposition home or self-care (01) ==
LOC: HO.PT 13:00
PROVIDERS: PCP Nurse Practitioner Family; Visit Provider Student in an Organized Health Care Education/Training Program
DX: M50.30 Other cervical disc degeneration, unspecified cervical region (principal)
CPT/HCPCS: 97110; 97140; 97162

== ENCOUNTER 2023-07-12 12:23 | Outpatient (AMB) | payer OTHER, SELFPAY ==
--- NOTE | 2023-07-12 13:01 | MHC.OFFVIS ---
Intake Vital Signs 07/12/23 13:06 Height 4 ft 11 in Weight 149 lb 14.629 oz BMI 30.3 BP 102/70 Blood Pressure Location Rt brachial Position Sitting Pulse 76 Pulse Source Pulse Oximeter Temp 97.4 F Temp Source Skin Pulse Oximetry (%) 99 Oxygen Delivery Method Room Air Intake Visit Reasons: FMS Intake Note: Patient last seen 03/08/23, presents today for follow up and test results. Started PT. [employer] Systems Administrator Required: Yes [employer] Systems Administrator Name: Cody [id number] Information Interpreted: clinical only Accompanied by: Self / Same As Patient Allergies No Known Allergies [No Known Allergies*] Allergy (Verified 07/12/23 13:02) Medication List - Last Reconciled 07/12/23 by Marley George MD alcohol swabs (Alcohol Prep Pads) 1 pad topical TID aspirin 81 mg PO DAILY atorvastatin 80 mg PO DAILY bisacodyl (Dulcolax (bisacodyl)) 10 mg (2 x 5 mg) PO ONCE 1 day blood pressure monitor (Blood Pressure Kit) As directed blood sugar diagnostic (OneTouch Ultra Test strips) As directed blood-glucose meter (OneTouch Ultra2 Meter) As directed cholecalciferol (vitamin D3) 25 mcg PO DAILY duloxetine 30 mg PO DAILY enalapril maleate 2.5 mg PO DAILY escitalopram oxalate 5 mg PO DAILY gabapentin 600 mg PO DAILY hydroxyzine HCl 25 mg PO DAILY lancets (FreeStyle Lancets) test daily metformin 500 mg PO DAILY miscellaneous medical supply 1 ea miscellaneous DAILY polyethylene glycol 3350 (Miralax) 238 grams PO ONCE sertraline 25 mg PO DAILY Shower Chair As directed temazepam 30 mg PO BEDTIME PRN HPI HPI Comments History of Present Illness Details 62-year-old female with fibromyalgia and generalized osteoarthritis returns for follow-up. She stated that she did physical therapy for her left shoulder and left carpal tunnel, she stated that it did not help. She was evaluated by Orthopedics and received a steroid injection for left hip trochanteric bursitis. States that the left hip still hurts. She states that she will start PT for her knees soon. Initial history: This is a 62-year-old female was referred for evaluation of fibromyalgia. She states that she was diagnosed with fibromyalgia in 2011 in [place]. She was started on gabapentin 600 mg daily and she would take temazepam at night. She took gabapentin for years and she stopped it about a year ago when [place] moved [place] the [place] She did not feel a difference in her symptoms when stopping it. Currently she is complaining of neck pain radiating to her left shoulder and left hand. She has pain in her knees with walking. She was referred to a psychologist and a psychiatrist by her PCP. She stated that she had a psychiatrist and a psychologist back in [place]. [facility] Medical History Other and unspecified hyperlipidemia Type 2 diabetes mellitus with unspecified complications Surgical History History of colonoscopy Previous section History of cholecystectomy Family History Mother Hypertension Thyroid activity decreased Rheumatoid arthritis Father Coronary artery disease Diabetes mellitus Brother Arrhythmia Social History Housing: Apartment Alcohol intake: never Patient Tobacco Use Status: Never used Tobacco service: No Current occupational status: unemployed Cognitive needs: No Hearing needs: No Vision needs: No Review of Systems Musc Reports back pain, Reports myalgias, Reports arthralgias and Reports stiffness Physical Exam Vital Signs: Last Vital Signs Temp 97.4 F 07/12/23 13:06 Pulse 76 07/12/23 13:06 BP 102/70 07/12/23 13:06 Pulse Ox 99 07/12/23 13:06 Oxygen Delivery Method Room Air 07/12/23 13:06 BMI result Body Mass Index 30.3 Const General: cooperative and healthy appearing Nutritional Appearance: overweight Orientation/consciousness: patient oriented x3 Limitations: no limitations HEENT Head: Yes normocephalic and Yes atraumatic Resp Effort & Inspection: normal respiratory effort and able to speak in complete sentences Auscultation: clear to auscultation bilaterally Cardio Rate: regular rate Rhythm: regular rhythm Skin General skin exam: no rashes or lesions noted Neuro General: patient oriented x3 Extrem Other: No active synovitis. Limited neck rotation, flexion and extension and lateral flexion Negative Spurling's test Multiple fibromyalgia tender points No active synovitis bilateral knee crepitus Assessment & Plan Assessment & Plan (1) Generalized osteoarthritis: Code(s): M15.9 - Polyosteoarthritis, unspecified (2) Fibromyalgia: Code(s): M79.7 - Fibromyalgia Plan: This is a 62-year-old female with fibromyalgia and generalized osteoarthritis who presents for follow up. Her symptoms have been stable. She is currently in the process of doing PT Follow-up with PCP Follow-up with me as needed Plan I spent 15 minutes reviewing patient's chart, evaluating patient, counseling patient and documenting in the chart Coding Level of Care Code Est Pt Level 3 (48963) Diagnoses Generalized osteoarthritis M15.9 Fibromyalgia M79.7
[2023-07-12 13:06] VITALS: BP 102/70; PULSE 76; TEMP 36.3; O2SAT 99; BMI 30.3
== END 2023-07-12 13:22 | disposition home or self-care (01) ==
PROVIDERS: PCP Nurse Practitioner Family; Visit Provider Student in an Organized Health Care Education/Training Program
DX: M15.9 Polyosteoarthritis, unspecified (principal); M79.7 Fibromyalgia
CPT/HCPCS: 99213

== ENCOUNTER → 2023-07-12 12:23 | Outpatient (BNVA) | payer OTHER, SELFPAY | PROVIDERS: PCP Nurse Practitioner Family; Visit Provider Student in an Organized Health Care Education/Training Program | DX: M79.7 Fibromyalgia (principal); M15.9 Polyosteoarthritis, unspecified | CPT/HCPCS: 99212 ==

== ENCOUNTER 2023-07-18 08:52 | Outpatient (REF) | payer OTHER, SELFPAY ==
[2023-07-18 10:08] LABS: Estimated Average Glucose 128 mg/dL; Hemoglobin A1c % 6.1 % (<6.0)
[2023-07-18 10:38] LABS: Alanine Aminotransferase 18 U/L (0-31); Albumin Level 4.2 g/dL (3.5-5.0); Alkaline Phosphatase 106 U/L (39-117); Anion Gap 13 (12-20); Aspartate Amino Transferase 19 U/L (5-31); Bilirubin Total 0.4 mg/dL (0.0-1.0); Blood Urea Nitrogen 16 mg/dL (9-16); Calcium 9.6 mg/dL (8.4-10.2); Carbon Dioxide 28 mmol/L (22-29); Chloride 106 mmol/L (96-108); Cholesterol 203 mg/dL (<200); Estimated Glomerular Filt Rate > 60; Glucose Fasting 90 mg/dL (60-99); HDL Cholesterol 66 mg/dL (>40); LDL Cholesterol Calculated 117 mg/dL (<100); Potassium 4.2 mmol/L (3.3-5.1); Sodium 143 mmol/L (135-145); Total Protein 7.5 g/dL (6.5-8.0); Triglycerides 100 mg/dL (<150)
[2023-07-18 10:56] LABS: Vitamin D 25-OH Total 29.3 ng/mL (>30)
== END 2023-07-18 08:53 | disposition home or self-care (01) ==
LOC: HO.LAB 08:52
PROVIDERS: PCP Nurse Practitioner Family; Visit Provider Nurse Practitioner Family
DX: E11.8 Type 2 diabetes mellitus with unspecified complications (principal); E55.9 Vitamin D deficiency, unspecified; E78.5 Hyperlipidemia, unspecified
CPT/HCPCS: 36415; 80053; 80061; 82306; 83036

== ENCOUNTER 2023-08-04 10:45 | Outpatient (AMB) | payer OTHER, SELFPAY ==
--- NOTE | 2023-08-04 10:52 | MHC.PC.OV ---
Vital Signs 08/04/23 10:54 Height 4 ft 11 in Weight 153 lb 6 oz BMI 31.0 BP 130/64 Blood Pressure Location Lt brachial Position Sitting Pulse 71 Pulse Source Pulse Oximeter Pulse Oximetry (%) 96 Oxygen Delivery Method Room Air Intake Visit Reasons: F/U on DM, HLD, HTN Intake Note: Patient is here to follow up on DM, HLD, HTN. Meeting Facilitator Required: Yes Meeting Facilitator Language: Biostatistics Teacher Name: Sarmad ([id number]) Information Interpreted: non-clinical & clinical Lumber Carrier: Not Required per policy Accompanied by: Self / Same As Patient Allergies No Known Allergies [No Known Allergies*] Allergy (Verified 08/04/23 10:53) Medication List - Last Reconciled 08/04/23 by Theodore Dinero MD alcohol swabs (Alcohol Prep Pads) 1 pad topical TID aspirin 81 mg PO DAILY atorvastatin 80 mg PO DAILY bisacodyl (Dulcolax (bisacodyl)) 10 mg (2 x 5 mg) PO ONCE 1 day blood pressure monitor (Blood Pressure Kit) As directed blood sugar diagnostic (OneTouch Ultra Test strips) As directed blood-glucose meter (OneTouch Ultra2 Meter) As directed cholecalciferol (vitamin D3) 25 mcg PO DAILY duloxetine 30 mg PO DAILY enalapril maleate 2.5 mg PO DAILY escitalopram oxalate 5 mg PO DAILY gabapentin 600 mg PO DAILY hydroxyzine HCl 25 mg PO DAILY lancets (FreeStyle Lancets) test daily metformin 500 mg PO DAILY miscellaneous medical supply 1 ea miscellaneous DAILY polyethylene glycol 3350 (Miralax) 238 grams PO ONCE sertraline 25 mg PO DAILY Shower Chair As directed temazepam 30 mg PO BEDTIME PRN Tobacco use date assessed: 08/04/23 Dental Screening Dental Screen Date: 08/04/23 Did you have a dental visit in the last 12 months?: Yes Did you have a dental problem in the last 6 months where you did not have access to dental care?: No Was dental information given to patient?: Patient has dentist HPI F/U on DM, HLD, HTN HPI Details DM HTN and hyperlip; stableon rx PFSH Medical History Other and unspecified hyperlipidemia Type 2 diabetes mellitus with unspecified complications Surgical History History of colonoscopy Previous section History of cholecystectomy Family History (Updated 08/04/23 @ 10:52 by BENITO Reyes) Mother Hypertension Thyroid activity decreased Rheumatoid arthritis Father Coronary artery disease Diabetes mellitus Brother Arrhythmia Social History Housing: Apartment Alcohol intake: never Patient Tobacco Use Status: Never used Tobacco e-Cigarette/Vaping Use: Never Used Second Hand Smoke Exposure: No service: No Current occupational status: unemployed Cognitive needs: No Hearing needs: No Vision needs: No Questionnaire PHQ-9 Over the last 2 weeks, how often have you been bothered by any of the following problems? 1. Little interest or pleasure in doing things: not at all 2. Feeling down, depressed, or hopeless: not at all 3. Trouble falling or staying asleep, or sleeping too much: not at all 4. Feeling tired or having little energy: not at all 5. Poor appetite or overeating: not at all 6. Feeling bad about yourself - or that you are a failure or have let yourself or your family down: not at all 7. Trouble concentrating on things, such as reading the newspaper or watching television: not at all 8. Moving or speaking so slowly that other people could have noticed. Or the opposite - being so fidgety or restless that you have been moving around a lot more than usual: not at all 9. Thoughts that you would be better off or of hurting yourself in some way: not at all Total score: 0 Depression Screening Interpretation: Negative Depression Screening Done: Yes [id number] - PHQ-9 Billing: Yes Source: Developed by Drs. Nate Mason, Edie Marcos, Lisandro Quevedo and colleagues, with an educational miriam from [employer]. Thrive Questionnaire Date Thrive assessed: 08/04/23 I am a: Patient What is your living situation today?: I have a steady place to live Within the past 12 months, did the food you bought not last and you didn't have the money to get more?: Never true Within the past 12 months, did you worry whether your food would run out before you got money to buy more?: Never true Do you have trouble paying for medicines?: No Do you have trouble getting transportation to medical appointments?: No Do you have trouble paying your heating and electricity bill?: No Do you have trouble taking care of your child, family member or friend?: No Do you have trouble with day-to-day activities such as bathing, preparing meals, shopping, managing finances, etc.?: No Are you currently unemployed and looking for a job?: No Are you interested in more education?: No Currently or been in a relationship where the following occur: no concerns reported AUDIT C Alcohol Use Questionnaire (AUDIT-C) 1. How often do you have a drink containing alcohol?: Never Total Score: 0 Score Reviewed/Action Taken: Yes NOREEN-7 AMB Questionnaire NOREEN-7 Date NOREEN - 7 assessed: 08/04/23 (pt is seeing psychiatrist) Feeling nervous, anxious, or on edge: 0 = Not at all Not being able to stop or control worryin = Not at all Worrying too much about different things: 0 = Not at all Trouble relaxin = Not at all Being so restless that it is hard to sit still: 0 = Not at all Becoming easily annoyed or irritable: 0 = Not at all Feeling afraid as if something awful might happen: 0 = Not at all Total NOREEN-7 score (0-4 normal; 5-9 mild; 10-14 moderate; 15-21 severe): 0 Source: Developed by Drs. Nate Mason, Edie Marcos, Lisandro Quevedo and colleagues, with an educational miriam from [employer]. NOREEN-7 Assessment Billing NOREEN-7 Assessment Tool: NOREEN-7 Assessment 43990 Review of Systems Const Denies chills, Denies headache(s) and Denies weight loss ENT Denies headache(s) Card Denies chest pain, Denies syncope, Denies irregular heart rhythm and Denies dyspnea Resp Denies chest congestion, Denies cough and Denies dyspnea GI Denies abdominal pain, Denies change in stool character, Denies nausea and Denies vomiting Musc Denies deformity and Denies joint swelling Neuro Denies syncope and Denies headache(s) Physical exam (Primary Care) Vital Signs: Last Vital Signs Pulse 71 08/04/23 10:54 BP 130/64 08/04/23 10:54 Pulse Ox 96 08/04/23 10:54 Oxygen Delivery Method Room Air 08/04/23 10:54 BMI result Body Mass Index 31.0 Tobacco/Smoking Status: Tobacco use Status Tobacco use date assessed 08/04/23 08/04/23 11:00 Patient Tobacco Use Status Never used Tobacco 08/04/23 11:00 e-Cigarette/Vaping Use Never Used 08/04/23 11:00 PHQ-9: PHQ-9 Score PHQ-9: Total score 0 08/04/23 11:08 Depression Screening Interpretation: Negative Thrive Assessment: Date of Thrive Assessment Date Thrive assessed 08/04/23 08/04/23 11:00 Currently or been in a relationship where the following occur: no concerns reported Const General: cooperative, comfortable, no acute distress and alert Neck Neck: Yes no lymphadenopathy Thyroid: Thyroid normal Resp Effort & Inspection: normal respiratory effort Auscultation: clear to auscultation bilaterally Percussion: percussion normal Cardio Jugular venous distension: no JVD Palpation: normal PMI Rate: regular rate Rhythm: regular rhythm Heart sounds: S1 normal heart sound present and S2 normal heart sound present GI Inspection: Yes normal to inspection Palpation (GI): No hepatosplenomegaly present Skin General skin exam: no rashes or lesions noted Extrem General: Yes no clubbing, cyanosis or edema Office Procedures Flu Questionnaire Does the patient have a severe egg allergy?: No Does the patient have severe life threatening allergies?: No Does the patient have a fever or illness today?: No Has the patient ever had Guillain-[place] Syndrome?: No Has the patient ever had any past reaction to a flu shot?: No Immunizations flu vacc [id number] 6mos up(PF) 60 mcg(15 mcgx4)/0.5 mL IM syringe Performing Provider: Theodore Dinero MD Performing Location: [facility] Administered by: Nicky Redmond on 08/04/23 11:16 Dose Route Admin Location Dispensed Lot Number Expiration Date NDC Costuming Supervisor 0.5 mL IM Right Deltoid 0.5 mL [id number] 01/28/24 [id number] [employer] VIS Given Date VIS Provided VIS Publication Date 08/04/23 Single Vaccine 21 Eligibility Eligibility Date Funding Source Not C Eligible 08/04/23 Private Assessment and Plan Assessment & Plan (1) Hyperlipidemia: Code(s): E78.5 - Hyperlipidemia, unspecified Plan: stable; same rx (2) Hypertension: Code(s): I10 - Essential (primary) hypertension Plan: stable; same rx (3) Type 2 diabetes mellitus with unspecified complications: Code(s): E11.8 - Type 2 diabetes mellitus with unspecified complications Orders: Orders Influenza [id number] Immunization Today Z23 - Encounter for immunization Lipid Panel Today E78.5 - Hyperlipidemia, unspecified Thyroid Stimulating Hormone Today E03.9 - Hypothyroidism, unspecified Hemoglobin A1c Today R73.9 - Hyperglycemia, unspecified RT home sleep study Today R06.81 - Apnea, not elsewhere classified Glucose Fasting Today R73.9 - Hyperglycemia, unspecified Medications: Refilled metformin 500 mg PO DAILY 90 tabs 0RF E11.8 - Type 2 diabetes mellitus with unspecified complications blood sugar diagnostic ([employer] Ultra Test strips) As directed 100 ea 2RF E11.8 - Type 2 diabetes mellitus with unspecified complications gabapentin 600 mg PO DAILY 30 tabs 0RF M79.7 - Fibromyalgia atorvastatin 80 mg PO DAILY 90 tabs 1RF E78.5 - Hyperlipidemia, unspecified aspirin 81 mg PO DAILY 90 tabs 2RF I25.10 - Atherosclerotic heart disease of [place] coronary artery without angina pectoris cholecalciferol (vitamin D3) 25 mcg PO DAILY 90 tabs 0RF R79.89 - Other specified abnormal findings of blood chemistry enalapril maleate 2.5 mg PO DAILY 90 tabs 1RF I10 - Essential (primary) hypertension Coding Level of Care Code Est Pt Level 4 (14812) Diagnoses Hyperlipidemia E78.5 Hypertension I10 Type 2 diabetes mellitus with unspecified complications E11.8 Additional Codes NOREEN-7 Assessment Billing - NOREEN-7 Assessment Tool: NOREEN-7 Assessment 90886 ([id number])
[2023-08-04 10:54] VITALS: BP 130/64; PULSE 71; O2SAT 96; BMI 31.0
== END 2023-08-04 11:21 | disposition home or self-care (01) ==
PROVIDERS: PCP Nurse Practitioner Family; Visit Provider Internal Medicine
DX: E78.5 Hyperlipidemia, unspecified (principal); I10 Essential (primary) hypertension; E11.8 Type 2 diabetes mellitus with unspecified complications; Z23 Encounter for immunization
CPT/HCPCS: 90471; 90686; 99214

== ENCOUNTER → 2023-10-24 14:39 | Outpatient (REF) | payer OTHER, SELFPAY | LOC: HO.SL 14:39 | PROVIDERS: PCP Internal Medicine; Visit Provider Internal Medicine | DX: R06.81 Apnea, not elsewhere classified (principal) | CPT/HCPCS: 95806 ==

== ENCOUNTER → 2023-10-24 15:03 | Outpatient (BNV) | payer OTHER, SELFPAY | PROVIDERS: PCP Internal Medicine; Visit Provider Internal Medicine | DX: R06.83 Snoring (principal) | CPT/HCPCS: 95806 ==

== ENCOUNTER 2023-10-25 09:35 | Outpatient (REF) | payer OTHER, SELFPAY ==
[2023-10-25 11:02] LABS: Estimated Average Glucose 120 mg/dL; Hemoglobin A1c % 5.8 % (<6.0)
[2023-10-25 11:19] LABS: Cholesterol 197 mg/dL (<200); Glucose Fasting 91 mg/dL (60-99); HDL Cholesterol 68 mg/dL (>40); LDL Cholesterol Calculated 111 mg/dL (<100); Triglycerides 92 mg/dL (<150)
[2023-10-25 11:40] LABS: Thyroid Stimulating Hormone 2.23 uIU/mL (0.32-4.0)
== END 2023-10-25 09:36 | disposition home or self-care (01) ==
LOC: HO.LAB 09:35
PROVIDERS: PCP Internal Medicine; Visit Provider Internal Medicine
DX: R73.9 Hyperglycemia, unspecified (principal); E03.9 Hypothyroidism, unspecified; E78.5 Hyperlipidemia, unspecified
CPT/HCPCS: 36415; 80061; 82947; 83036; 84443

== ENCOUNTER 2023-11-03 11:23 | Outpatient (AMB) | payer OTHER, SELFPAY ==
--- NOTE | 2023-11-03 11:23 | MHC.PC.OV ---
Vital Signs 11/03/23 11:24 Height 4 ft 11 in Weight 154 lb BMI 31.1 BP 118/60 Blood Pressure Location Lt brachial Position Sitting Pulse 98 Pulse Source Pulse Oximeter Pulse Oximetry (%) 100 Oxygen Delivery Method Room Air Intake Visit Reasons: 3mth f/u Speech Lang Path Therapist Required: Yes Speech Lang Path Therapist Name: Sarmad ([id number]) Information Interpreted: non-clinical & clinical Material Controller: Not Required per policy Accompanied by: Self / Same As Patient Allergies No Known Allergies [No Known Allergies*] Allergy (Verified 11/03/23 11:24) Medication List - Last Reconciled 11/06/23 by Theodore Dinero MD alcohol swabs (Alcohol Prep Pads) 1 pad topical TID aspirin 81 mg PO DAILY atorvastatin 80 mg PO DAILY bisacodyl (Dulcolax (bisacodyl)) 10 mg (2 x 5 mg) PO ONCE 1 day blood pressure monitor (Blood Pressure Kit) As directed blood sugar diagnostic (OneTouch Ultra Test strips) As directed blood-glucose meter (OneTouch Ultra2 Meter) As directed cholecalciferol (vitamin D3) 25 mcg PO DAILY enalapril maleate 2.5 mg PO DAILY escitalopram oxalate 5 mg PO DAILY gabapentin 600 mg PO DAILY hydroxyzine HCl 25 mg PO DAILY lancets (FreeStyle Lancets) test daily metformin 500 mg PO DAILY miscellaneous medical supply 1 ea miscellaneous DAILY polyethylene glycol 3350 (Miralax) 238 grams PO ONCE sertraline 25 mg PO DAILY Shower Chair As directed temazepam 30 mg PO BEDTIME PRN Tobacco use date assessed: 08/04/23 Dental Screening Dental Screen Date: 08/04/23 HPI 3mth f/u HPI Details DM hypertension and hyperlipidemia on rx; doing well and compliant [facility] Medical History Other and unspecified hyperlipidemia Type 2 diabetes mellitus with unspecified complications Surgical History History of colonoscopy Previous section History of cholecystectomy Family History Mother Hypertension Thyroid activity decreased Rheumatoid arthritis Father Coronary artery disease Diabetes mellitus Brother Arrhythmia Social History Housing: Apartment Alcohol intake: never Patient Tobacco Use Status: Never used Tobacco e-Cigarette/Vaping Use: Never Used Second Hand Smoke Exposure: No service: No Current occupational status: unemployed Cognitive needs: No Hearing needs: No Vision needs: No Questionnaire Thrive Questionnaire Date Thrive assessed: 08/04/23 NOREEN-7 AMB Questionnaire NOREEN-7 Date NOREEN - 7 assessed: 08/04/23 (pt is seeing psychiatrist) Source: Developed by Drs. Nate Mason, Edie Marcos, Lisandro Quevedo and colleagues, with an educational miriam from [employer]. Review of Systems Const Denies chills, Denies headache(s) and Denies weight loss ENT Denies headache(s) Card Denies chest pain, Denies syncope, Denies irregular heart rhythm and Denies dyspnea Resp Denies chest congestion, Denies cough and Denies dyspnea GI Denies abdominal pain, Denies change in stool character, Denies nausea and Denies vomiting Musc Denies deformity and Denies joint swelling Neuro Denies syncope and Denies headache(s) Physical exam (Primary Care) Vital Signs: Last Vital Signs Pulse 98 11/03/23 11:24 BP 118/60 11/03/23 11:24 Pulse Ox 100 11/03/23 11:24 Oxygen Delivery Method Room Air 11/03/23 11:24 BMI result Body Mass Index 31.1 Tobacco/Smoking Status: Tobacco use Status Tobacco use date assessed 08/04/23 11/03/23 11:25 Patient Tobacco Use Status Never used Tobacco 11/03/23 11:25 e-Cigarette/Vaping Use Never Used 11/03/23 11:25 Thrive Assessment: Date of Thrive Assessment Date Thrive assessed 08/04/23 11/03/23 11:25 Const General: cooperative, comfortable, no acute distress and alert Neck Neck: Yes no lymphadenopathy Thyroid: Thyroid normal Resp Effort & Inspection: normal respiratory effort Auscultation: clear to auscultation bilaterally Percussion: percussion normal Cardio Jugular venous distension: no JVD Palpation: normal PMI Rate: regular rate Rhythm: regular rhythm Heart sounds: S1 normal heart sound present and S2 normal heart sound present GI Inspection: Yes normal to inspection Palpation (GI): No hepatosplenomegaly present Skin General skin exam: no rashes or lesions noted Extrem General: Yes no clubbing, cyanosis or edema Assessment and Plan Assessment & Plan (1) Hyperlipidemia: Code(s): E78.5 - Hyperlipidemia, unspecified Plan: stable; same rx (2) Hypertension: Code(s): I10 - Essential (primary) hypertension Plan: stable; same rx (3) Type 2 diabetes mellitus with unspecified complications: Code(s): E11.8 - Type 2 diabetes mellitus with unspecified complications Plan: stable; same rx Orders: Orders Thyroid Stimulating Hormone Today Z13.29 - Encounter for screening for other suspected endocrine disorder Lipid Panel Today Z13.220 - Encounter for screening for lipoid disorders Complete Blood Count Auto Diff Today Z13.0 - Encounter for screening for diseases of the blood and blood-forming organs and certain disorders involving the immune mechanism Comprehensive [place]. Panel Fast Today Z13.9 - Encounter for screening, unspecified Hemoglobin A1c Today R73.9 - Hyperglycemia, unspecified Coding Level of Care Code Est Pt Level 4 (09104) Diagnoses Hyperlipidemia E78.5 Hypertension I10 Type 2 diabetes mellitus with unspecified complications E11.8
[2023-11-03 11:24] VITALS: BP 118/60; PULSE 98; O2SAT 100; BMI 31.1
== END 2023-11-03 11:43 | disposition home or self-care (01) ==
PROVIDERS: PCP Nurse Practitioner Family; Visit Provider Internal Medicine
DX: E78.5 Hyperlipidemia, unspecified (principal); I10 Essential (primary) hypertension; E11.8 Type 2 diabetes mellitus with unspecified complications
CPT/HCPCS: 99214

== ENCOUNTER 2023-12-14 13:29 | Outpatient (AMB) | payer OTHER, SELFPAY ==
--- NOTE | 2023-12-14 13:33 | MHC.OFFVIS ---
Vital Signs 12/14/23 13:34 Height 4 ft 11 in Weight 157 lb BMI 31.7 BP 104/64 Intake Visit Reasons: ADMISSIONS COUNSELOR annual exam/30 mins/DO NOT RS Intake Note: having pain lower right side of abdomen near ovaries and odor in urine Dairy Equipment Mechanic Required: Yes Dairy Equipment Mechanic Language: Hydrometeorology Teacher Name: Loki [id number] Information Interpreted: non-clinical & clinical Compressor Assembler: Compressor Assembler Present (Aidyn) Allergies No Known Allergies [No Known Allergies*] Allergy (Verified 12/14/23 13:38) Is last menstrual period known: No Post menopausal: Yes Patient : No HPI Comments Details: She is a postmenopausal woman 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 She is doing well with no concerns: pain on her lower right side, urine odor, no frequency, or back pain, no fever, flu like symptom. Attempting to eat a healthy diet with calcium and vitamin D and stays active with exercise. Currently sexually active. Denies any vaginal dryness or irritation. Last pap smear; unknown dates in [place], no records, pt. reports about 5 yrs. ago and a negative history. Last mammogram; 2022. Colonoscopy is UTD, on wait list. Denies any family history of breast, ovarian or colon cancer. PFSH Medical History Other and unspecified hyperlipidemia Type 2 diabetes mellitus with unspecified complications Surgical History Hx of tubal ligation History of colonoscopy Previous section History of cholecystectomy Family History Mother Hypertension Thyroid activity decreased Rheumatoid arthritis Father Coronary artery disease Diabetes mellitus Brother Arrhythmia Social History Housing: Apartment Alcohol intake: never Patient Tobacco Use Status: Never used Tobacco e-Cigarette/Vaping Use: Never Used Second Hand Smoke Exposure: No service: No Current occupational status: unemployed Cognitive needs: No Hearing needs: No Vision needs: No Female Reproductive History Menstrual Age of Menarche: 11 control method: permanent sterilization Total pregnancies: 3 Full term: 3 Number of Living Children: 3 Date of Mammogram: 03/03/23 Review of Systems Const All systems reviewed & are unremarkable except as noted in HPI and below Reports as per HPI Eyes Reports no additional complaints ENT Reports no additional complaints Card Reports no additional complaints Resp Reports no additional complaints GI Reports as per HPI and Reports no additional complaints Reports as per HPI Musc Reports no additional complaints Skin/Breast Reports as per HPI Neuro Reports no additional complaints Psych Reports no additional complaints Endo Reports no additional complaints Wm/Lymph Reports no additional complaints Aller/Immun Reports no additional complaints Physical Exam Vital Signs: Last Vital Signs BP 104/64 12/14/23 13:34 BMI result Body Mass Index 31.7 Const General: cooperative, healthy appearing, no acute distress, well developed and alert Orientation/consciousness: patient oriented x3 HEENT Head: Yes normal to inspection Eyes General: appearance normal, both eyes and all related structures Neck Neck: Yes normal visual inspection Thyroid: Thyroid normal Chest Chest palpation & inspection: normal inspection of the chest and other (no puckering, dimpling, peau de orange, retraction, discharge, masses) Breast/axilla inspection: normal inspection of the breasts Breast/axilla palpation: normal palpation of the breasts Resp Effort & Inspection: normal respiratory effort GI Inspection: Yes normal to inspection Palpation (GI): Soft to palpation Rectal Exam - Female: deferred General: Yes bladder normal to palpation External Female Exam: normal external appearance and normal appearance of the urethra Speculum Exam - Vagina: normal appearance of the vagina, normal palpation, normal vaginal discharge and vagina atrophic Speculum Exam - Cervix: normal appearance of the cervix and normal palpation Bimanual exam- vagina & uterus: normal bimanual exam, normal palpation, uterine size normal, bladder normal to palpation, normal palpation and non-tender Bimanual Exam- Adnexa, other: no masses Skin General skin exam: no rashes or lesions noted Rashes: no rashes Neuro General: patient oriented x3 Cognition (Neuro): normal cognition Extrem General: Yes normal to inspection Psych Attitude: cooperative Thought process: Normal thought process present Results AMB Test Urine AMB Test Urine Negative Last Edit by BENITO Berman on 12/14/23 14:28 AMB Urinalysis, Automated UA Leukoctes 0.5 Valerie/uL Last Edit by BENITO Berman on 12/14/23 14:28 UA Nitrite Negative Last Edit by BENITO Berman on 12/14/23 14:28 UA Urobilinogen 0 mg/dL Last Edit by Aidjanel Gómez, RMA on 12/14/23 14:28 UA Protein 0 mg/dL Last Edit by Cy Gómez, RMA on 12/14/23 14:28 UA pH 5.5 Last Edit by Aidjanel Gómez, RMA on 12/14/23 14:28 UA Blood 0 Guillermo/uL Last Edit by Aidjanel Gómez, RMA on 12/14/23 14:28 UA Specific [place] 1.025 Last Edit by Aidjanel Gómez, RMA on 12/14/23 14:28 UA Ketone Negative Last Edit by Cy Gómez RMA on 12/14/23 14:28 UA Bilirubin 0 mg/dL Last Edit by Cy Gómez, RMA on 12/14/23 14:28 UA Glucose 0 mg/dL Last Edit by Cy Gómez A on 12/14/23 14:28 Results Reviewed Results Reviewed: Laboratory Last Values Urine pH (Auto) 5.5 12/14/23 14:24 Specific [place] (Auto) 1.025 12/14/23 14:24 Urine Protein (Auto) 0 mg/dL 12/14/23 14:24 Glucose (UA)(Auto) 0 mg/dL 12/14/23 14:24 Urine Ketones (Auto) Negative 12/14/23 14:24 Urine Blood (Auto) 0 Guillermo/uL 12/14/23 14:24 Urine Nitrite (Auto) Negative 12/14/23 14:24 Urine Bilirubin (Auto) 0 mg/dL 12/14/23 14:24 Urine Urobilinogen (Auto) 0 mg/dL 12/14/23 14:24 Leukocyte Esterase (Auto) 0.5 Valerie/uL 12/14/23 14:24 Tst Clinic Negative 12/14/23 14:24 Assessment & Plan Assessment & Plan (1) Encounter for well woman exam with routine gynecological exam: Code(s): Z01.419 - Encounter for gynecological examination (general) (routine) without abnormal findings Category: Medical (2) Pain in pelvis: Code(s): R10.2 - Pelvic and perineal pain Plan Discussed: Current recommendations for pap smears per ASCCP guidelines. Breast awareness, periodic self breast exams and yearly mammogram. Maintain a healthy lifestyle, well balanced diet including Calcium 1,200 mg and Vitamin D 600 IU daily, and routine exercise. Use of condoms for STI if indicated. Contact the office with any postmenopausal bleeding. Workup for pelvic pain to include cervical cultures, pelvic ultrasound, urine dip culture if indicated. Follow up in person for test results and plan of care if any severe pain go to the emergency room, use of [id number] self-help medication if mild discomfort as directed. Patient verbalizes understanding and agrees to the plan of care. She was given opportunity to ask questions and all questions were answered to the best of my ability. RTO in 1 year for annual staff design engineer exam. This note is constructed using voice recognition software. While every effort has been made to ensure accuracy, cloth mercerizer operator errors may have been included. Orders: Orders US pelvic and transvaginal Today R10.2 - Pelvic and perineal pain Bacterial Vaginosis Panel Today R10.2 - Pelvic and perineal pain Urine Culture Today R10.2 - Pelvic and perineal pain AMB HCG Urine Test Today R10.2 - Pelvic and perineal pain AMB Urinalysis Automated Today R10.2 - Pelvic and perineal pain CT NG by PCR Today R10.2 - Pelvic and perineal pain Pap Smear Today R10.2 - Pelvic and perineal pain Coding Level of Care Code New Pt Prev Care 40-64y(63790) Diagnoses Encounter for well woman exam with routine gynecological exam Z01.419 Pain in pelvis R10.2
[2023-12-14 13:34] VITALS: BP 104/64; BMI 31.7
== END 2023-12-14 14:21 | disposition home or self-care (01) ==
PROVIDERS: PCP Nurse Practitioner Family; Visit Provider Advanced Practice Midwife
DX: Z01.419 Encounter for gynecological examination (general) (routine) without abnormal findings (principal); R10.2 Pelvic and perineal pain
CPT/HCPCS: 99386

== ENCOUNTER 2023-12-14 13:29 | Outpatient (REF) | payer OTHER, SELFPAY ==
[2023-12-14 18:35] LABS: CT PCR NOT DETECTED (Not Detect.); NG PCR NOT DETECTED (Not Detect.)
[2023-12-15 09:32] LABS: Bacterial Vaginosis PCR NEGATIVE (Negative); Candida Group PCR NOT DETECTED (Not Detect); Candida glab krusei PCR NOT DETECTED (Not Detect); Trichomonas vaginalis PCR NOT DETECTED (Not Detect)
[2023-12-22 01:03] LABS: HPV mRNA E6/E7 rflx Not Detected (Not Detected)
== END 2023-12-14 13:30 | disposition home or self-care (01) ==
LOC: HO.LNP 13:29
PROVIDERS: PCP Nurse Practitioner Family; Visit Provider Advanced Practice Midwife
DX: Z01.419 Encounter for gynecological examination (general) (routine) without abnormal findings (principal); R10.2 Pelvic and perineal pain
CPT/HCPCS: 0352U; 0353U; 81003; 81025; 87086; 87624; 88142

== ENCOUNTER 2024-01-02 13:22 | Outpatient (REF) | payer OTHER, SELFPAY ==
--- NOTE | ~2024-01-02 | US_ITS ---
EXAMINATION: US PELVIS CLINICAL INFORMATION: Pelvic and perineal pain, last menstrual period at age 51. COMPARISON: None available. TECHNIQUE: Ultrasound of the pelvis is performed using both transabdominal and transvaginal transducers along with Doppler. Transvaginal imaging is performed due to inadequate visualization transabdominally. Limited visualization due to bowel gas and body habitus. FINDINGS: The uterus is anteverted, heterogeneous and measures 7.3 x 2.8 x 3.5 cm. Double wall endometrial thickness is 5 mm. Right ovary not visualized. Limited visualization due to bowel gas and body habitus. Left ovary measures 1.6 x 1.7 x 0.9 cm, volume 1.3 mL and is grossly unremarkable on limited images. No significant free fluid. US/US pelvic and transvaginal IMPRESSION: 1. Double wall endometrial thickness is 5 mm, possibly abnormal in postmenopausal patient. Please note that visualization of endometrium limited due to uterine heterogeneity and bowel gas. 2. Right ovary not visualized. Left ovary grossly unremarkable. 3. Gynecologic consultation recommended to determine further management.
== END 2024-01-02 13:23 | disposition home or self-care (01) ==
LOC: HO.US 13:22
PROVIDERS: PCP Internal Medicine; Visit Provider Advanced Practice Midwife
DX: R10.2 Pelvic and perineal pain (principal); R30.0 Dysuria
CPT/HCPCS: 76830; 76856; 87086

== ENCOUNTER 2024-01-26 09:42 | Outpatient (AMB) | payer OTHER, SELFPAY ==
--- NOTE | 2024-01-26 09:51 | MHC.PC.OV ---
Vital Signs 01/26/24 09:52 Height 4 ft 11 in Weight 151 lb BMI 30.5 BP 130/70 Blood Pressure Location Lt brachial Position Sitting Pulse 63 Pulse Source Pulse Oximeter Pulse Oximetry (%) 98 Oxygen Delivery Method Room Air Intake Visit Reasons: Annual Exam Human Resources Receptionist Required: Yes Human Resources Receptionist Name: [email or web address] ([id number]) Career Information Specialist: Not Required per policy Accompanied by: Self / Same As Patient Allergies No Known Allergies [No Known Allergies*] Allergy (Verified 01/26/24 09:52) Medication List - Last Reconciled 01/26/24 by Theodore Dinero MD alcohol swabs (Alcohol Prep Pads) 1 pad topical TID aspirin 81 mg PO DAILY atorvastatin 80 mg PO DAILY bisacodyl (Dulcolax (bisacodyl)) 10 mg (2 x 5 mg) PO ONCE 1 day blood pressure monitor (Blood Pressure Kit) As directed blood sugar diagnostic ([employer] Ultra Test strips) As directed blood-glucose meter (Footfall123Touch Ultra2 Meter) As directed cholecalciferol (vitamin D3) 25 mcg PO DAILY enalapril maleate 2.5 mg PO DAILY escitalopram oxalate 10 mg PO DAILY gabapentin 600 mg PO DAILY hydroxyzine HCl 25 mg PO DAILY lancets (FreeStyle Lancets) test daily lancets (Footfall123Touch Delica Plus Lancet) As directed metformin 500 mg PO DAILY mirtazapine 7.5 mg PO BEDTIME miscellaneous medical supply 1 ea miscellaneous DAILY polyethylene glycol 3350 (Miralax) 238 grams PO ONCE Shower Chair As directed Tobacco use date assessed: 08/04/23 Dental Screening Dental Screen Date: 08/04/23 HPI Annual Exam HPI Details diabetes hyperlipidemia and hypertension PFSH Medical History Other and unspecified hyperlipidemia Type 2 diabetes mellitus with unspecified complications Surgical History Hx of tubal ligation History of colonoscopy Previous section History of cholecystectomy Family History Mother Hypertension Thyroid activity decreased Rheumatoid arthritis Father Coronary artery disease Diabetes mellitus Brother Arrhythmia Social History Housing: Apartment Alcohol intake: never Patient Tobacco Use Status: Never used Tobacco e-Cigarette/Vaping Use: Never Used Second Hand Smoke Exposure: No service: No Current occupational status: unemployed Cognitive needs: No Hearing needs: No Vision needs: No Female Reproductive History Menstrual Age of Menarche: 11 Questionnaire Thrive Questionnaire Date Thrive assessed: 08/04/23 NOREEN-7 AMB Questionnaire NOREEN-7 Date NOREEN - 7 assessed: 08/04/23 (pt is seeing psychiatrist) Source: Developed by Drs. Nate Mason, Edie Marcos, Lisandro Quevedo and colleagues, with an educational miriam from [employer]. Review of Systems Const Denies chills, Denies fatigue, Denies headache(s) and Denies weight loss Eyes Denies change in vision, Denies diplopia and Denies eye pain ENT Denies vertigo, Denies dizziness, Denies headache(s) and Denies nasal discharge Card Denies chest pain, Denies rapid heart rate and Denies dyspnea on exertion Resp Denies chest congestion, Denies cough, Denies pain with cough and Denies dyspnea on exertion GI Denies abdominal pain, Denies hematochezia and Denies change in bowel habits Musc Denies myalgias, Denies arthralgias and Denies joint swelling Skin/Breast Denies lesions and Denies unusual bruising Neuro Denies vertigo, Denies dizziness, Denies headache(s) and Denies focal weakness Endo Denies fatigue Physical exam (Primary Care) Vital Signs: Last Vital Signs Pulse 63 01/26/24 09:52 BP 130/70 01/26/24 09:52 Pulse Ox 98 01/26/24 09:52 Oxygen Delivery Method Room Air 01/26/24 09:52 BMI result Body Mass Index 30.5 Tobacco/Smoking Status: Tobacco use Status Tobacco use date assessed 08/04/23 01/26/24 09:59 Patient Tobacco Use Status Never used Tobacco 01/26/24 09:59 e-Cigarette/Vaping Use Never Used 01/26/24 09:59 Thrive Assessment: Date of Thrive Assessment Date Thrive assessed 08/04/23 01/26/24 09:59 Const General: cooperative, healthy appearing and no acute distress Orientation/consciousness: oriented to person, oriented to place and oriented to time HENNV Head: Yes normal to inspection, Yes normocephalic and Yes atraumatic Mouth: Normal oral and palatal mucosa present and tongue normal Throat: Yes posterior oropharynx normal and Yes uvula midline Eyes General: appearance normal, both eyes and all related structures Neck Neck: Yes normal visual inspection, Yes full ROM and Yes no lymphadenopathy Thyroid: Thyroid normal Carotids: normal carotid upstroke Chest Chest palpation & inspection: normal inspection of the chest Resp Effort & Inspection: normal respiratory effort and able to speak in complete sentences Auscultation: clear to auscultation bilaterally Cardio Jugular venous distension: no JVD Palpation: normal PMI Rate: regular rate Rhythm: regular rhythm Heart sounds: S1 normal heart sound present and S2 normal heart sound present GI Inspection: Yes normal to inspection Palpation (GI): Soft to palpation and No hepatosplenomegaly present Auscultation: normal bowel sounds General: Yes no CVA tenderness Back/Spine/Pelvis Back: no CVA tenderness Skin General skin exam: no rashes or lesions noted Neuro General: oriented to person, oriented to place and oriented to time Extrem General: Yes normal to inspection and Yes full ROM Assessment and Plan Assessment & Plan (1) Physical exam: Code(s): Z00.00 - Encounter for general adult medical examination without abnormal findings Plan: stable; do labs (2) Hyperlipidemia: Code(s): E78.5 - Hyperlipidemia, unspecified Plan: stable; same rx (3) Hypertension: Code(s): I10 - Essential (primary) hypertension Plan: stable; same rx (4) Type 2 diabetes mellitus with unspecified complications: Code(s): E11.8 - Type 2 diabetes mellitus with unspecified complications Plan: stable; same rx Coding Level of Care Code Est Pt Prev Care 40-64y(42309) Diagnoses Physical exam Z00.00 Hyperlipidemia E78.5 Hypertension I10 Type 2 diabetes mellitus with unspecified complications E11.8
[2024-01-26 09:52] VITALS: BP 130/70; PULSE 63; O2SAT 98; BMI 30.5
== END 2024-01-26 10:23 | disposition home or self-care (01) ==
PROVIDERS: PCP Nurse Practitioner Family; Visit Provider Internal Medicine
DX: Z00.00 Encounter for general adult medical examination without abnormal findings (principal); E78.5 Hyperlipidemia, unspecified; I10 Essential (primary) hypertension; E11.8 Type 2 diabetes mellitus with unspecified complications
CPT/HCPCS: 99396

== ENCOUNTER 2024-03-07 10:45 | Outpatient (AMB) | payer OTHER, SELFPAY ==
--- NOTE | 2024-03-07 10:50 | MHC.OFFVIS ---
Intake Visit Reasons: Ultrasound Follow up Group Home Paraprofessional Required: Yes Group Home Paraprofessional Language: Sales And Marketing Engineer Name: [id number] Information Interpreted: non-clinical & clinical Cell Preparer: Cell Preparer Present Allergies No Known Allergies [No Known Allergies*] Allergy (Verified 03/07/24 10:51) Is last menstrual period known: Yes HPI Comments Details: Patient is here today for a follow up on her pelvic ultrasound, history of pelvic pain. She reports intermittent pelvic discomfort, more do after getting up in the am, voiding then improves her symptoms. She denies any postmenopausal bleeding. REPLACED BY [facility] Medical History Other and unspecified hyperlipidemia Type 2 diabetes mellitus with unspecified complications Surgical History Hx of tubal ligation History of colonoscopy Previous section History of cholecystectomy Family History Mother Hypertension Thyroid activity decreased Rheumatoid arthritis Father Coronary artery disease Diabetes mellitus Brother Arrhythmia Social History Housing: Apartment Alcohol intake: never Patient Tobacco Use Status: Never used Tobacco e-Cigarette/Vaping Use: Never Used Second Hand Smoke Exposure: No service: No Current occupational status: unemployed Cognitive needs: No Hearing needs: No Vision needs: No Female Reproductive History Menstrual Age of Menarche: 11 Review of Systems Const All systems reviewed & are unremarkable except as noted in HPI and below Endo Reports no additional complaints Physical Exam Const General: cooperative, healthy appearing and no acute distress Psych Appearance: well kempt Attitude: cooperative Thought process: Normal thought process present Results Reviewed Results Reviewed: [address] [address] Ultrasound Report Signed Patient: Caroline Arndt MR#: [id number] : 1960 Acct:[id number] Age/Sex: 63 / F ADM Date: 01/02/24 Loc: HO.US Attending Dr: Becca Sanchez CNM Ordering Physician: Becca Sanchez CNM Date of Service: 01/02/24 Procedure(s): US pelvic and transvaginal Accession Number(s): [id number] cc: Theodore Dinero MD; Becca Sanchez CNM~ EXAMINATION: US PELVIS CLINICAL INFORMATION: Pelvic and perineal pain, last menstrual period at age 51. COMPARISON: None available. TECHNIQUE: Ultrasound of the pelvis is performed using both transabdominal and transvaginal transducers along with Doppler. Transvaginal imaging is performed due to inadequate visualization transabdominally. Limited visualization due to bowel gas and body habitus. FINDINGS: The uterus is anteverted, heterogeneous and measures 7.3 x 2.8 x 3.5 cm. Double wall endometrial thickness is 5 mm. Right ovary not visualized. Limited visualization due to bowel gas and body habitus. Left ovary measures 1.6 x 1.7 x 0.9 cm, volume 1.3 mL and is grossly unremarkable on limited images. No significant free fluid. US/US pelvic and transvaginal IMPRESSION: 1. Double wall endometrial thickness is 5 mm, possibly abnormal in postmenopausal patient. Please note that visualization of endometrium limited due to uterine heterogeneity and bowel gas. 2. Right ovary not visualized. Left ovary grossly unremarkable. 3. Gynecologic consultation recommended to determine further management. Dictated By: Terrie Moya MD Signed By: <Electronically signed by Terrie Moya MD in OV> 01/24/24 1000 DD/ 1346 TD/TT: Media/Instructional Designer: Assessment & Plan Assessment & Plan (1) Encounter to discuss test results: Code(s): Z71.2 - Person consulting for explanation of examination or test findings (2) Thickened endometrium: Code(s): R93.89 - Abnormal findings on diagnostic imaging of other specified body structures Plan Discussed: Results of the urinalysis and cervical cultures (negative), ultrasound revealed thickened endometrium at 0.5 cm. Advised endometrial biopsy to rule out any uterine abnormalities including atypia, hyperplasia, precancer and cancer of the uterus. She agrees to have an endometrial biopsy. Preprocedure anticipatory guidance reviewed including: To eat in hydrate and may take 2 Tylenol 1 hour before her appointment time to help with cramping. All of her questions and concerns were addressed to the best of my ability and shared decision making. She is agreeable to the plan of care. This note is constructed using voice recognition software. While every effort has been made to ensure accuracy, tile grinder errors may have been included. Coding Level of Care Code Est Pt Level 3 (80943) Diagnoses Encounter to discuss test results Z71.2 Thickened endometrium R93.89
== END 2024-03-07 11:28 | disposition home or self-care (01) ==
LOC: HO.HWS 10:45
PROVIDERS: PCP Internal Medicine; Visit Provider Advanced Practice Midwife
DX: Z71.2 Person consulting for explanation of examination or test findings (principal); R93.89 Abnormal findings on diagnostic imaging of other specified body structures
CPT/HCPCS: 99213

== ENCOUNTER → 2024-03-07 10:45 | Outpatient (BNVA) | payer OTHER, SELFPAY | PROVIDERS: PCP Internal Medicine; Visit Provider Advanced Practice Midwife | DX: R93.89 Abnormal findings on diagnostic imaging of other specified body structures (principal); R10.2 Pelvic and perineal pain; Z71.2 Person consulting for explanation of examination or test findings | CPT/HCPCS: 99212 ==

== ENCOUNTER 2024-04-23 10:00 | Outpatient (REF) | payer OTHER, SELFPAY ==
[2024-04-23 10:19] LABS: MANUAL DIFF FLAG NO
[2024-04-23 10:43] LABS: Basophils Percent Auto 0.5 % (0-2); Eosinophils Absolute Auto 0.2 X10*3/uL (0.0-0.4); Eosinophils Percent Auto 2.8 % (0-4); Hematocrit 39.3 % (37.0-47.0); Hemoglobin 12.8 g/dl (12.0-16.0); Imm Gran Abs Auto 0.02 X10*3/uL (0.00-0.03); Imm Gran Pct Auto 0.3 % (0.0-0.4); Lymphocytes Absolute Auto 2.7 X10*3/uL (1.2-4.9); Lymphocytes Percent Auto 42.4 % (20-40); Mean Corpuscular HGB Conc 32.6 g/dl (31.0-35.0); Mean Corpuscular Volume 76.8 fL (80.0-98.0); Mean Platelet Volume 10.9 fL (9.4-12.3); Monocytes Absolute Auto 0.5 X10*3/uL (0.1-1.2); Monocytes Percent Auto 8.1 % (2-11); Neutrophils Absolute Auto 2.9 x10*3/uL (2.0-8.3); Neutrophils Percent Auto 45.9 % (45-73); Platelet Count 203 X10*3/uL (160-400); Red Blood Count 5.12 X10*6/uL (4.20-5.50); Red Cell Distribution Width 13.6 % (11.0-16.0); White Blood Count 6.4 X10*3/uL (4.8-10.8)
[2024-04-23 11:05] LABS: Estimated Average Glucose 123 mg/dL; Hemoglobin A1c % 5.9 % (<6.0)
[2024-04-23 11:24] LABS: Alanine Aminotransferase 43 U/L (0-31); Albumin Level 4.4 g/dL (3.5-5.0); Alkaline Phosphatase 130 U/L (39-117); Anion Gap 10 (12-20); Aspartate Amino Transferase 32 U/L (5-31); Bilirubin Total 0.3 mg/dL (0.0-1.0); Blood Urea Nitrogen 12 mg/dL (9-16); Calcium 9.9 mg/dL (8.4-10.2); Carbon Dioxide 31 mmol/L (22-29); Chloride 104 mmol/L (96-108); Cholesterol 185 mg/dL (<200); Estimated Glomerular Filt Rate > 60; Glucose Fasting 92 mg/dL (60-99); HDL Cholesterol 61 mg/dL (>40); LDL Cholesterol Calculated 105 mg/dL (<100); Potassium 4.3 mmol/L (3.3-5.1); Sodium 141 mmol/L (135-145); Total Protein 8.1 g/dL (6.5-8.0); Triglycerides 99 mg/dL (<150)
[2024-04-23 11:25] LABS: Thyroid Stimulating Hormone 1.33 uIU/mL (0.32-4.0)
== END 2024-04-23 10:01 | disposition home or self-care (01) ==
LOC: HO.LAB 10:00
PROVIDERS: PCP Internal Medicine; Visit Provider Internal Medicine
DX: Z13.0 Encounter for screening for diseases of the blood and blood-forming organs and certain disorders involving the immune mechanism (principal); Z13.29 Encounter for screening for other suspected endocrine disorder; Z13.220 Encounter for screening for lipoid disorders; R73.9 Hyperglycemia, unspecified
CPT/HCPCS: 36415; 80053; 80061; 83036; 84443; 85025

== ENCOUNTER 2024-04-26 14:02 | Outpatient (AMB) | payer OTHER, SELFPAY ==
--- NOTE | 2024-04-26 14:11 | MHC.OFFVIS ---
Vital Signs 04/26/24 14:15 BP 114/70 Intake Visit Reasons: EMB/30 mins Union Contract Representative Required: Yes Union Contract Representative Language: Soaking Pit Operator Name: Valeria Information Interpreted: non-clinical & clinical Zipper Setter: Zipper Setter Present (Valeria) Allergies No Known Allergies [No Known Allergies*] Allergy (Verified 03/07/24 10:51) HPI Comments Details: Patient is here for an endometrial biopsy due to the ultrasound findings of a thickened endometrium. She has not had any postmenopausal bleeding. [facility] Medical History Other and unspecified hyperlipidemia Type 2 diabetes mellitus with unspecified complications Surgical History Hx of tubal ligation History of colonoscopy Previous section History of cholecystectomy Family History Mother Hypertension Thyroid activity decreased Rheumatoid arthritis Father Coronary artery disease Diabetes mellitus Brother Arrhythmia Social History Housing: Apartment Alcohol intake: never Patient Tobacco Use Status: Never used Tobacco e-Cigarette/Vaping Use: Never Used Second Hand Smoke Exposure: No service: No Current occupational status: unemployed Cognitive needs: No Hearing needs: No Vision needs: No Female Reproductive History Menstrual Age of Menarche: 11 Review of Systems Const All systems reviewed & are unremarkable except as noted in HPI and below Physical Exam Vital Signs: Last Vital Signs BP 114/70 04/26/24 14:15 Const General: cooperative, healthy appearing and no acute distress Orientation/consciousness: patient oriented x3 GI Inspection: Yes normal to inspection Palpation (GI): Soft to palpation and Other GI palpation findings present (Nontender) Rectal Exam - Female: visual inspection normal General: Yes bladder normal to palpation External Female Exam: normal appearance of the urethra Speculum Exam - Vagina: normal appearance of the vagina, normal palpation and normal vaginal discharge Speculum Exam - Cervix: normal appearance of the cervix and normal palpation Bimanual exam- vagina & uterus: normal bimanual exam, normal palpation, uterine size normal, bladder normal to palpation, normal palpation, uterine shape normal and non-tender Bimanual Exam- Adnexa, other: normal adnexae Neuro General: patient oriented x3 Office Procedures Endometrial Biopsy Details: The patient is here today for an endometrial biopsy due to thickened endometrial lining seen on ultrasound to rule out any pathology including atypical, hyperplasia or cancer cells of the uterus. She was counseled regarding anticipatory guidance for the procedure including the risks for pain, infection, bleeding, perforation, potential injury to the tissues may include the cervix, uterus, tubes, bladder and bowels. These injuries may include further treatment and evaluation including surgery, blood transfusions, antibiotics, hospitalizations and anesthesia. Permanent injury and scarring can occur. She was consented for the procedure, and the consent forms were signed. She is agreeable to have the procedure today. All questions were answered. Endometrial Biopsy Procedure: The patient was placed in the dorsal lithotomy position and a sterile speculum inserted. Using aseptic technique for the procedure. The cervix was cleansed with Betadine x 3 swabs. A single toothed tenaculum was placed on the cervix for stabilization and the uterus was sounded to 6 cm with a 4mm pipelle, the patient could not tolerate the procedure and during the 1st pass asked to stop, no tissue was obtained. Minimal bleeding was observed. The patient tolerate the procedure well and was in good condition when leaving the department. Endometrial Biopsy Post Procedure Care: Nothing in the vagina including: tampons, douching or intimacy until all the bleeding has subsided. There may be some post procedure bleeding for several days, this bleeding is usually light and may turn to a light brown or pink color. Mild cramps may occurs. Nothing in the vaginal including: tampons, douching, or intimacy until all the bleeding has subsided. You may take an over the counter mild analgesic such as Tylenol or Advil (if no allergies) per the manufactures recommendation on dosing, frequency, and follow the directions completely. Call the office if any: fever (over 100.4), flu like symptoms, abdominal pain (worse than cramping), foul smelling, infected appearing vaginal discharge, or heavy bleeding. If indicated: Use condoms to prevent and STI's, and only after the bleeding has stopped completely. She reports due to her high anxiety in the discomfort she would prefer to have anesthesia for the procedure, she will be booked with Dr. Patterson for a consult to have a hysteroscopy completed. This note is constructed using voice recognition software. While every effort has been made to ensure accuracy, sheriff deputy errors may have been included. [id number] Biopsy Assessment & Plan Assessment & Plan (1) Thickened endometrium: Code(s): R93.89 - Abnormal findings on diagnostic imaging of other specified body structures Plan See procedure notes. Coding Level of Care Code Procedure Only Diagnoses Thickened endometrium R93.89 CPT Codes Endometrial Biopsy - CPT: 83995-Vfyepvleduy Biopsy ([id number])
[2024-04-26 14:15] VITALS: BP 114/70
== END 2024-04-26 14:42 | disposition home or self-care (01) ==
LOC: HO.HWS 14:02
PROVIDERS: PCP Internal Medicine; Visit Provider Advanced Practice Midwife
DX: R93.89 Abnormal findings on diagnostic imaging of other specified body structures (principal)
CPT/HCPCS: 58100

== ENCOUNTER → 2024-04-26 14:02 | Outpatient (BNVA) | payer OTHER, SELFPAY | PROVIDERS: PCP Internal Medicine; Visit Provider Advanced Practice Midwife | DX: R93.89 Abnormal findings on diagnostic imaging of other specified body structures (principal) | CPT/HCPCS: 58100 ==

== ENCOUNTER 2024-05-08 12:53 | Outpatient (AMB) | payer OTHER, SELFPAY ==
[2024-05-08 12:55] VITALS: BP 108/68; PULSE 74; O2SAT 96; BMI 31.3
--- NOTE | 2024-05-08 12:55 | A.OFFPC_ITS ---
Vital Signs 05/08/24 12:55 Height 4 ft 11 in Weight 155 lb BMI 31.3 BP 108/68 Blood Pressure Location Lt brachial Position Sitting Pulse 74 Pulse Source Pulse Oximeter Pulse Oximetry (%) 96 Oxygen Delivery Method Room Air Intake Visit Reasons: 3 mo f/u Graphic Design Specialist Required: Yes Graphic Design Specialist Language: Drilling Inspector Name: Hero [id number] Accompanied by: Self / Same As Patient Allergies No Known Allergies [No Known Allergies*] Allergy (Verified 05/08/24 12:55) Medication List - Last Reconciled 05/08/24 by Theodore Dinero MD alcohol swabs (Alcohol Prep Pads) 1 pad topical TID aspirin 81 mg PO DAILY atorvastatin 80 mg PO DAILY bisacodyl (Dulcolax (bisacodyl)) 10 mg (2 x 5 mg) PO ONCE 1 day blood pressure monitor (Blood Pressure Kit) As directed blood sugar diagnostic ([employer] Ultra Test strips) As directed blood-glucose meter ([employer]ameTouch Ultra2 Meter) As directed cholecalciferol (vitamin D3) 25 mcg PO DAILY enalapril maleate 2.5 mg PO DAILY escitalopram oxalate 10 mg PO DAILY gabapentin 600 mg PO DAILY hydroxyzine HCl 10 mg PO TID lancets (OneTouch Delica Plus Lancet) As directed lancets (FreeStyle Lancets) test daily metformin 500 mg PO DAILY mirtazapine 7.5 mg PO BEDTIME miscellaneous medical supply 1 ea miscellaneous DAILY polyethylene glycol 3350 (Miralax) 238 grams PO ONCE Shower Chair As directed trazodone 100 mg PO BEDTIME Tobacco use date assessed: 08/04/23 Dental Screening Dental Screen Date: 08/04/23 HPI 3 mo f/u HPI Details hyperlipidemia; doing well; compliant; DM in good control [facility] Medical History Other and unspecified hyperlipidemia Type 2 diabetes mellitus with unspecified complications Surgical History Hx of tubal ligation History of colonoscopy Previous section History of cholecystectomy Family History Mother Hypertension Thyroid activity decreased Rheumatoid arthritis Father Coronary artery disease Diabetes mellitus Brother Arrhythmia Social History Housing: Apartment Alcohol intake: never Patient Tobacco Use Status: Never used Tobacco Tobacco use type: Cigarette e-Cigarette/Vaping Use: Never Used Second Hand Smoke Exposure: No service: No Current occupational status: unemployed Cognitive needs: No Hearing needs: No Vision needs: No Female Reproductive History Menstrual Age of Menarche: 11 Questionnaire PHQ-9 Over the last 2 weeks, how often have you been bothered by any of the following problems? 1. Little interest or pleasure in doing things: not at all 2. Feeling down, depressed, or hopeless: not at all 3. Trouble falling or staying asleep, or sleeping too much: not at all 4. Feeling tired or having little energy: not at all 5. Poor appetite or overeating: not at all 6. Feeling bad about yourself - or that you are a failure or have let yourself or your family down: not at all 7. Trouble concentrating on things, such as reading the newspaper or watching television: not at all 8. Moving or speaking so slowly that other people could have noticed. Or the opposite - being so fidgety or restless that you have been moving around a lot more than usual: not at all 9. Thoughts that you would be better off or of hurting yourself in some way: not at all Total score: 0 Depression Screening Interpretation: Negative Depression Screening Done: Yes [id number] - PHQ-9 Billing: Yes Source: Developed by Drs. Nate Mason, Edie Marcos, Lisandro Quevedo and colleagues, with an educational miriam from [employer]. Thrive Questionnaire Date Thrive assessed: 08/04/23 AUDIT C Alcohol Use Questionnaire (AUDIT-C) 1. How often do you have a drink containing alcohol?: Never Total Score: 0 Score Reviewed/Action Taken: Yes NOREEN-7 AMB Questionnaire NOREEN-7 Date NOREEN - 7 assessed: 08/04/23 Source: Developed by Drs. Nate Mason, Edie Marcos, Lisandro Quevedo and colleagues, with an educational miriam from [employer]. Review of Systems Const Denies chills, Denies headache(s) and Denies weight loss ENT Denies headache(s) Card Denies chest pain, Denies syncope, Denies irregular heart rhythm and Denies dyspnea Resp Denies chest congestion, Denies cough and Denies dyspnea GI Denies abdominal pain, Denies change in stool character, Denies nausea and Denies vomiting Musc Denies deformity and Denies joint swelling Neuro Denies syncope and Denies headache(s) Physical exam (Primary Care) Vital Signs: Last Vital Signs Pulse 74 05/08/24 12:55 BP 108/68 05/08/24 12:55 Pulse Ox 96 05/08/24 12:55 Oxygen Delivery Method Room Air 05/08/24 12:55 BMI result Body Mass Index 31.3 Tobacco/Smoking Status: Tobacco use Status Tobacco use date assessed 08/04/23 05/08/24 13:03 Patient Tobacco Use Status Never used Tobacco 05/08/24 13:03 Tobacco use type Cigarette 05/08/24 13:03 e-Cigarette/Vaping Use Never Used 05/08/24 13:03 PHQ-9: PHQ-9 Score PHQ-9: Total score 0 05/08/24 13:03 Depression Screening Interpretation: Negative Thrive Assessment: Date of Thrive Assessment Date Thrive assessed 08/04/23 05/08/24 13:03 Const General: cooperative, comfortable, no acute distress and alert Neck Neck: Yes no lymphadenopathy Thyroid: Thyroid normal Resp Effort & Inspection: normal respiratory effort Auscultation: clear to auscultation bilaterally Percussion: percussion normal Cardio Jugular venous distension: no JVD Palpation: normal PMI Rate: regular rate Rhythm: regular rhythm Heart sounds: S1 normal heart sound present and S2 normal heart sound present GI Inspection: Yes normal to inspection Palpation (GI): No hepatosplenomegaly present Skin General skin exam: no rashes or lesions noted Extrem General: Yes no clubbing, cyanosis or edema Coding Level of Care Code Est Pt Level 3 (80329) Diagnoses Type 2 diabetes mellitus with unspecified complications E11.8 Hypertension I10 Assessment & Plan Assessment & Plan (1) Type 2 diabetes mellitus with unspecified complications: Code(s): E11.8 - Type 2 diabetes mellitus with unspecified complications Category: Medical Plan: stable; same rx (2) Hypertension: Code(s): I10 - Essential (primary) hypertension Category: Medical Plan: stable; same rx Orders: Orders Complete Blood Count Auto Diff Today Z13.0 - Encounter for screening for diseases of the blood and blood-forming organs and certain disorders involving the immune mechanism Comprehensive [place]. Panel Fast Today Z13.9 - Encounter for screening, unspecified Hemoglobin A1c Today R73.9 - Hyperglycemia, unspecified Lipid Panel Today Z13.220 - Encounter for screening for lipoid disorders
== END 2024-05-08 13:18 | disposition home or self-care (01) ==
PROVIDERS: PCP Internal Medicine; Visit Provider Internal Medicine
DX: E11.8 Type 2 diabetes mellitus with unspecified complications (principal); I10 Essential (primary) hypertension; Z23 Encounter for immunization

== ENCOUNTER → 2024-05-08 12:53 | Outpatient (BNVA) | payer OTHER, SELFPAY | PROVIDERS: PCP Internal Medicine; Visit Provider Internal Medicine | DX: Z23 Encounter for immunization (principal); E11.8 Type 2 diabetes mellitus with unspecified complications; I10 Essential (primary) hypertension | CPT/HCPCS: 90471; 90656; 96127; 99212 ==

== ENCOUNTER 2024-05-28 12:53 | Outpatient (AMB) | payer OTHER, SELFPAY ==
[2024-05-28 13:07] VITALS: BP 116/70; BMI 31.3
--- NOTE | 2024-05-28 13:07 | MHC.OFFVIS ---
Vital Signs 05/28/24 13:07 Height 4 ft 11 in Weight 155 lb BMI 31.3 BP 116/70 Blood Pressure Location Lt brachial Position Sitting Intake Visit Reasons: Hysteroscopy consult Consumer Insights Intern Required: Yes Consumer Insights Intern Language: Machinist Wood Services: Consumer Insights Intern Present Consumer Insights Intern Name: Carmelo ([id number]) Esthetician/Spa Coordinator: Esthetician/Spa Coordinator Present Allergies No Known Allergies [No Known Allergies*] Allergy (Verified 05/28/24 13:12) Is last menstrual period known: Yes Last menstrual period: 05/28/20 Post menopausal: No Patient : No Do you need a note to return to daycare/school/sports/work: Yes (for surgery on monday) HPI Comments Details: Presenting referred from Becca Sanchez CNM regarding thickened endometrium by ultrasound. The patient gives history of no vaginal bleeding Pelvic ultrasound done in 01/21 showed the following: The uterus is anteverted, heterogeneous and measures 7.3 x 2.8 x 3.5 cm. Double wall endometrial thickness is 5 mm. Right ovary not visualized. Limited visualization due to bowel gas and body habitus. Left ovary measures 1.6 x 1.7 x 0.9 cm, volume 1.3 mL and is grossly unremarkable on limited images. No significant free fluid. Last co testing in 12/21 was negative PFSH Medical History Other and unspecified hyperlipidemia Type 2 diabetes mellitus with unspecified complications Surgical History Hx of tubal ligation History of colonoscopy Previous section History of cholecystectomy Family History Mother Hypertension Thyroid activity decreased Rheumatoid arthritis Father Coronary artery disease Diabetes mellitus Brother Arrhythmia Social History Housing: Apartment Alcohol intake: never Patient Tobacco Use Status: Never used Tobacco Tobacco use type: Cigarette e-Cigarette/Vaping Use: Never Used Second Hand Smoke Exposure: No service: No Current occupational status: unemployed Cognitive needs: No Hearing needs: No Vision needs: No Female Reproductive History Menstrual Age of Menarche: 11 Date of last menstrual period: 05/28/20 Total pregnancies: 2 Full term: 2 Review of Systems Const All systems reviewed & are unremarkable except as noted in HPI and below Reports as per HPI and Reports no additional complaints Card Reports as per HPI and Reports no additional complaints Resp Reports as per HPI and Reports no additional complaints GI Reports as per HPI and Reports no additional complaints Reports as per HPI Physical Exam Vital Signs: Last Vital Signs BP 116/70 05/28/24 13:07 BMI result Body Mass Index 31.3 Assessment & Plan Assessment & Plan (1) Thickened endometrium: Code(s): R93.89 - Abnormal findings on diagnostic imaging of other specified body structures Category: Medical Plan: Discussed with the patient endometrial thickness above 4 mm in menopause , the differential diagnosis of a thickened endometrium includes but not limited to endometrial polyp, hyperplasia or carcinoma. Explained to the patient that endometrial each thickness is less predictive of endometrial neoplasia in asymptomatic patients, i.e. those without postmenopausal uterine bleeding. The sensitivity and specificity for detecting endometrial carcinoma at an endometrial thickness of >= 5mm was 83 and 72 percent, respectively; this is lower than in patients with bleeding. Studies have shown that postmenopausal patients without uterine bleeding who had an endometrial thickness >11 mm had an endometrial carcinoma risk of 6.7 percent; this risk is similar to postmenopausal patients with bleeding and an endometrial thickness >5 mm. Recommended endometrial sampling to rule endometrial pathology via either office endometrial biopsy or diagnostic hysteroscopy/D&C with possible polypectomy/myomectomy. All pros and cons, risks and benefits of each approach were discussed with the patient, the patient declined to proceed with endometrial biopsy and would like to proceed with hysteroscopy. The patient gives a history of [place] and hypertension crisis intraoperatively during her last procedure under anesthesia in [place] recently. Since the patient is a medical high-risk will refer to a tertiary care center. Will refer to [facility] for further management. Instructed the patient to call our office back in case a referral appointment is not scheduled, missed or canceled so that we will assist on rescheduling another appointment, the patient verbalized understanding agreed with the plan. Coding Level of Care Code Est Pt Level 3 (62914) Diagnoses Thickened endometrium R93.89
== END 2024-05-28 13:33 | disposition home or self-care (01) ==
LOC: HO.HWS 12:54
PROVIDERS: PCP Internal Medicine; Visit Provider Obstetrics & Gynecology
DX: R93.89 Abnormal findings on diagnostic imaging of other specified body structures (principal)
CPT/HCPCS: 99213

== ENCOUNTER → 2024-05-28 12:53 | Outpatient (BNVA) | payer OTHER, SELFPAY | PROVIDERS: PCP Internal Medicine; Visit Provider Obstetrics & Gynecology | DX: R93.89 Abnormal findings on diagnostic imaging of other specified body structures (principal) | CPT/HCPCS: 99212 ==

== ENCOUNTER 2024-09-06 09:42 | Outpatient (REF) | payer OTHER, SELFPAY ==
[2024-09-06 09:59] LABS: MANUAL DIFF FLAG NO
--- OUTSIDE RECORDS SUMMARY | 2024-09-06 10:28 | XMS_ITS | Clinical Summary ---
Author Organization [employer] Address [address] [facility] [address] [place] [address] Care Team Providers Care Derrick Boat Captain Name Role Phone Unavailable Primary Care Provider Unavailabl e Allergies No known active allergies Medications atorvastatin (Lipitor) 40 MG tabletIndications:H yperlipidemia, unspecified hyperlipidemia type Take 1 tablet (40 mg) by mouth in the morning. 90 tablet 3 3 Active enalapril (Vasotec) 2.5 MG tabletIndications:H yperlipidemia, unspecified hyperlipidemia type Take 1 tablet (2.5 mg) by mouth in the morning. 90 tablet 3 3 Active aspirin 81 MG EC tabletIndications:H yperlipidemia, unspecified hyperlipidemia type Take 1 tablet (81 mg) by mouth in the morning. 90 tablet 3 3 Active metFORMIN (Glucophage) 500 MG tabletIndications:D iabetes mellitus without complication (CMS/HCC) Take 1 tablet (500 mg) by mouth in the morning. 90 tablet 3 3 Active gabapentin (Neurontin) 600 MG tabletIndications:D iabetes mellitus without complication (CMS/HCC) Take 1 tablet (600 mg) by mouth in the morning. 30 tablet 3 3 Active temazepam (Restoril) 30 MG capsuleIndications: Insomnia, unspecified type take 1 capsule by oral route every day at bedtime as needed 30 capsule 3 Active Active Problems Problem Noted Date Diagnosed Date Anxiety 09/26/2022 Diabetes mellitus without complication 2 Chronic insomnia 06/02/2022 Hyperlipidemia 06/02/2022 Social History Tobacco Use Types Packs/Day Years Used Date Smoking Tobacco: Never Smokeless Tobacco: Never Tobacco Cessation:Counseling Given: Not Answered Comments Unknown Sex and Gender Information Value Date Recorded Sex Assigned at Female 05/30/2022 10:26 AM EDT Legal Sex Female 10:26 AM EDT Gender Identity Female 09/26/2022 11:01 AM EST Sexual Orientation Don't know 09/26/2022 11 :01 AM EST Last Filed Vital Signs Vital Sign Reading Time Taken Comments Blood Pressure 115/86 09/26/2022 11:13 AM EST Pulse 61 09/26/2022 11:13 AM EST Temperature 36.7 ??C (98.1 ??F) 09/26/2022 11:[address] Respiratory Rate 16 09/26/2022 11:13 AM EST Oxygen Saturation 99% 09/26/2022 11:13 AM EST Inhaled Oxygen Concentration - - Weight 66 kg (145 lb 9.6 oz) 09/26/2022 11:13 AM EST Height - - Body Mass Index - - Plan of Treatment Health Maintenance Due Date Last Done Comments CT Colonography 1961 Colonoscopy 1961 Colorectal Cancer Screening 1961 Depression Screening 1961 Diabetes: Hemoglobin A1C 1961 FIT DNA/Cologuard 1961 FIT 1961 FOBT 1961 HIV Screening 1961 Lipid Panel 1961 SDOH Screening 1961 Sigmoidoscopy 1961 Diabetes: Foot Exam 1971 Eye Exam 1971 Alcohol/Substance Use Screening 1973 Hepatitis C Screening 1979 Diabetes: Urine Protein Screening 1980 Pap Smear 1982 Cervical Cancer Screening 1991 HPV/Cotest 1991 Mammogram 2001 Zoster Vaccines (1 of 2) 2011 DTaP/Tdap/Td Vaccines (2 - T d or Tdap) 05/03/2020 05/03/2010 Pneumococcal Vaccine: 50+ Ye ars (2 of 2 - PCV) 07/06/2020 07/06/2019 Pneumococcal Vaccine: Pediat rics (0 to 5 Years) and At-Risk Patients (6 to 49) Years) (2 of 2 - PCV) 07/06/2020 07/06/2019 RSV Patients and Pa tients Aged 60 years or older (1 - Risk 60-74 years 1-dose series) 2021 Tobacco Screening 09/26/2023 09/26/2022 COVID-19 Vaccine (2 - 2023-2 5 season) 2024 07/13/2021 Influenza Vaccine (#1) 2024 05/03/2010 HIB Vaccines Aged Out No longer eligi ble based on patient's age to complete this topic HPV Vaccines Aged Out No longer eligi ble based on patient's age to complete this topic Hepatitis A Vaccines Aged Out No long er eligible based on patient's age to complete this topic Hepatitis B Vaccines Aged Out No long er eligible based on patient's age to complete this topic IPV Vaccines Aged Out No longer eligi ble based on patient's age to complete this topic Meningococcal Vaccine Aged Out No francis gaudencio eligible based on patient's age to complete this topic RSV under 20 months Aged Out No longe r eligible based on patient's age to complete this topic Rotavirus Vaccines Aged Out No longer eligible based on patient's age to complete this topic Insurance [facility] STANDARD [facility]
--- OUTSIDE RECORDS SUMMARY | 2024-09-06 10:28 | XMS_ITS | Encounter Summary ---
Author Organization [employer] Address [address] [facility] [address] [place] [address] Care Team Providers Care Supervisor Painting Name Role Phone Daisy Henriquez [facility] Primary Care Provider [phone] Reason for Visit * Reason Onset Date Comments New Patient Appt 01/26/2023 Encounter Details Date Type Department Care Team (Late st Contact Info) Description 01/26/2023 Telephone [facility] [address] [place] [address] Daisy Henriquez [facility] [address] [place] [address] New Patient Appt Social History Tobacco Use Types Packs/Day Years Used Date Smoking Tobacco: Never Smokeless Tobacco: Never Comments Unknown Sex and Gender Information Value Date Recorded Sex Assigned at Female 05/30/2022 10:26 AM EDT Legal Sex Female 10:26 AM EDT Gender Identity Female 09/26/2022 11:01 AM EST Sexual Orientation Don't know 09/26/2022 11 :01 AM EST documented as of this encounter Miscellaneous Notes * Telephone Encounter - José Miguel Bryson - 01/26/2023 12:30 PM EDT Tc from Caroline returning phone call. Caroline advise that she has already a provider [place] [facility] [place] [place]. * Telephone Encounter - José Miguel Bryson - 01/26/2023 9:45 AM EDT New Patients Par José Miguel Jose called to schedule New patient appt, pt did not answer left voicemail to give a call at [phone]. documented in this encounter Plan of Treatment Not on file documented as of this encounter Visit Diagnoses Not on filedocumented in this encounter Care Teams Supervisor Painting Relationship Specialty Start Date End Date Daisy Henriquez FNP [address] [place] [id number] PCP - General Family Medicine 09/13/22 03/05/23 documented as of this encounter
--- OUTSIDE RECORDS SUMMARY | 2024-09-06 10:28 | XMS_ITS | Encounter Summary ---
Author Organization [employer] Address [address] [facility] [address] [place] [address] Care Team Providers Care Audit Intern Name Role Phone Unavailable Primary Care Provider Unavailabl e Reason for Visit * Reason Comments Med Refill Encounter Details Date Type Department Care Team (Late st Contact Info) Description 04/19/2023 Refill [facility] [address] [place] [address] Ramona Harris MD [address] [place] [address] Diabetes mellitus without complication (CMS/HCC) Social History Tobacco Use Types Packs/Day Years Used Date Smoking Tobacco: Never Smokeless Tobacco: Never Comments Unknown Sex and Gender Information Value Date Recorded Sex Assigned at Female 05/30/2022 10:26 AM EDT Legal Sex Female 10:26 AM EDT Gender Identity Female 09/26/2022 11:01 AM EST Sexual Orientation Don't know 09/26/2022 11 :01 AM EST documented as of this encounter Plan of Treatment Not on file documented as of this encounter Visit Diagnoses Diagnosis Diabetes mellitus without complication (CMS/HCC) Type II or unspecified type diabetes mellitus without mention of complication, not stated as uncontrolled documented in this encounter
[2024-09-06 10:42] LABS: Basophils Absolute Auto 0.1 X10*3/uL (0.0-0.2); Basophils Percent Auto 0.8 % (0-2); Eosinophils Absolute Auto 0.2 X10*3/uL (0.0-0.4); Eosinophils Percent Auto 3.6 % (0-4); Hematocrit 39.3 % (37.0-47.0); Hemoglobin 12.7 g/dl (12.0-16.0); Imm Gran Abs Auto 0.02 X10*3/uL (0.00-0.03); Imm Gran Pct Auto 0.3 % (0.0-0.4); Lymphocytes Absolute Auto 2.5 X10*3/uL (1.2-4.9); Lymphocytes Percent Auto 39.9 % (20-40); Mean Corpuscular HGB Conc 32.3 g/dl (31.0-35.0); Mean Corpuscular Hemoglobin 24.9 pg (27.0-33.0); Mean Corpuscular Volume 77.1 fL (80.0-98.0); Mean Platelet Volume 11.1 fL (9.4-12.3); Monocytes Absolute Auto 0.4 X10*3/uL (0.1-1.2); Monocytes Percent Auto 6.5 % (2-11); Neutrophils Percent Auto 48.9 % (45-73); Platelet Count 213 X10*3/uL (160-400); Red Cell Distribution Width 13.7 % (11.0-16.0); White Blood Count 6.1 X10*3/uL (4.8-10.8)
[2024-09-06 10:54] LABS: Estimated Average Glucose 137 mg/dL; Hemoglobin A1C 151.8242 umol/L; Hemoglobin A1c % 6.4 % (<6.0); Total Hemoglobin (HGBA1C) 3308.2855 umol/L
[2024-09-06 11:38] LABS: Alanine Aminotransferase 17 U/L (0-31); Albumin Level 4.4 g/dL (3.5-5.0); Alkaline Phosphatase 112 U/L (39-117); Anion Gap 9 (12-20); Aspartate Amino Transferase 22 U/L (5-31); Bilirubin Total 0.3 mg/dL (0.0-1.0); Blood Urea Nitrogen 14 mg/dL (9-16); Calcium 9.9 mg/dL (8.4-10.2); Carbon Dioxide 28 mmol/L (22-29); Chloride 105 mmol/L (96-108); Cholesterol 214 mg/dL (<200); Estimated Glomerular Filt Rate > 60; Glucose Fasting 105 mg/dL (60-99); HDL Cholesterol 70 mg/dL (>40); LDL Cholesterol Calculated 126 mg/dL (<100); Potassium 4.4 mmol/L (3.3-5.1); Sodium 138 mmol/L (135-145); Total Protein 8.1 g/dL (6.5-8.0); Triglycerides 91 mg/dL (<150)
== END 2024-09-06 09:43 | disposition home or self-care (01) ==
LOC: HO.LAB 09:42
PROVIDERS: PCP Internal Medicine; Visit Provider Internal Medicine
DX: Z13.0 Encounter for screening for diseases of the blood and blood-forming organs and certain disorders involving the immune mechanism (principal); Z13.9 Encounter for screening, unspecified; R73.9 Hyperglycemia, unspecified; Z13.220 Encounter for screening for lipoid disorders
CPT/HCPCS: 36415; 80053; 80061; 83036; 85025

== ENCOUNTER 2024-09-10 13:11 | Outpatient (AMB) | payer OTHER, SELFPAY ==
[2024-09-10 13:14] VITALS: BP 112/78; PULSE 84; TEMP 36.7; O2SAT 97; BMI 32.3
--- NOTE | 2024-09-10 13:14 | A.OFFPC_ITS ---
Vital Signs 09/10/24 13:14 Height 4 ft 11 in Weight 160 lb BMI 32.3 BP 112/78 Blood Pressure Location Lt brachial Position Sitting Pulse 84 Pulse Source Pulse Oximeter Temp 98.1 F Temp Source Oral Pulse Oximetry (%) 97 Oxygen Delivery Method Room Air Intake Visit Reasons: 3mth f/u Satellite Installation Technician Required: Yes Satellite Installation Technician Language: Office Runner Name: Used table-Sarmad [id number] Accompanied by: Self / Same As Patient Allergies No Known Allergies [No Known Allergies*] Allergy (Verified 09/10/24 13:19) Medication List - Last Reconciled 09/11/24 by Theodore Dinero MD alcohol swabs (Alcohol Prep Pads) 1 pad topical TID aspirin 81 mg PO DAILY atorvastatin 80 mg PO DAILY bisacodyl (Dulcolax (bisacodyl)) 10 mg (2 x 5 mg) PO ONCE 1 day blood pressure monitor (Blood Pressure Kit) As directed blood sugar diagnostic (OneTouch Ultra Test strips) As directed blood-glucose meter (SMR SITETouch Ultra2 Meter) As directed cholecalciferol (vitamin D3) 25 mcg PO DAILY enalapril maleate 2.5 mg PO DAILY escitalopram oxalate 10 mg PO DAILY gabapentin 600 mg PO DAILY hydroxyzine HCl 10 mg PO TID lancets (OneTouch Delica Plus Lancet) As directed lancets (FreeStyle Lancets) test daily metformin 500 mg PO DAILY mirtazapine 7.5 mg PO BEDTIME miscellaneous medical supply 1 ea miscellaneous DAILY polyethylene glycol 3350 (Miralax) 238 grams PO ONCE Shower Chair As directed trazodone 100 mg PO BEDTIME Tobacco use date assessed: 09/10/24 Dental Screening Dental Screen Date: 09/10/24 Did you have a dental visit in the last 12 months?: Yes Did you have a dental problem in the last 6 months where you did not have access to dental care?: No Was dental information given to patient?: Patient has dentist HPI 3mth f/u HPI Details DM hypertension and hyperlipidemia; doing well; compliant [facility] Medical History Other and unspecified hyperlipidemia Type 2 diabetes mellitus with unspecified complications Surgical History Hx of tubal ligation History of colonoscopy Previous section History of cholecystectomy Family History Mother Hypertension Thyroid activity decreased Rheumatoid arthritis Father Coronary artery disease Diabetes mellitus Brother Arrhythmia Social History Housing: Apartment Alcohol intake: never Patient Tobacco Use Status: Never used Tobacco Tobacco use type: Cigarette e-Cigarette/Vaping Use: Never Used Second Hand Smoke Exposure: No service: No Current occupational status: unemployed Cognitive needs: No Hearing needs: No Vision needs: No Female Reproductive History Menstrual Age of Menarche: 11 Questionnaire PHQ-9 Over the last 2 weeks, how often have you been bothered by any of the following problems? 1. Little interest or pleasure in doing things: not at all 2. Feeling down, depressed, or hopeless: not at all 3. Trouble falling or staying asleep, or sleeping too much: not at all 4. Feeling tired or having little energy: not at all 5. Poor appetite or overeating: not at all 6. Feeling bad about yourself - or that you are a failure or have let yourself or your family down: not at all 7. Trouble concentrating on things, such as reading the newspaper or watching television: not at all 8. Moving or speaking so slowly that other people could have noticed. Or the opposite - being so fidgety or restless that you have been moving around a lot more than usual: not at all 9. Thoughts that you would be better off or of hurting yourself in some way: not at all Total score: 0 Depression Screening Interpretation: Negative Depression Screening Done: Yes 56886 - PHQ-9 Billing: Yes Source: Developed by Drs. Nate Mason, Edie Marcos, Lisandro Quevedo and colleagues, with an educational miriam from [employer]. Thrive Questionnaire Date Thrive assessed: 09/10/24 I am a: Patient What is your living situation today?: I have a steady place to live Within the past 12 months, did the food you bought not last and you didn't have the money to get more?: Never true Within the past 12 months, did you worry whether your food would run out before you got money to buy more?: Never true Do you have trouble paying for medicines?: No Do you have trouble getting transportation to medical appointments?: No Do you have trouble paying your heating and electricity bill?: No Do you have trouble taking care of your child, family member or friend?: No Do you have trouble with day-to-day activities such as bathing, preparing meals, shopping, managing finances, etc.?: No Are you currently unemployed and looking for a job?: No Are you interested in more education?: No Please select the resources that you would like help with: None Currently or been in a relationship where the following occur: No concerns reported THRIVE Score: 0 AUDIT C Alcohol Use Questionnaire (AUDIT-C) 1. How often do you have a drink containing alcohol?: Never 3. How often do you have six or more drinks on one occasion?: Never Total Score: 0 Score Reviewed/Action Taken: Yes NOREEN-7 AMB Questionnaire NOREEN-7 Date NOREEN - 7 assessed: 09/10/24 Feeling nervous, anxious, or on edge: 0 = Not at all Not being able to stop or control worryin = Not at all Worrying too much about different things: 0 = Not at all Trouble relaxin = Not at all Being so restless that it is hard to sit still: 0 = Not at all Becoming easily annoyed or irritable: 0 = Not at all Feeling afraid as if something awful might happen: 0 = Not at all Total NOREEN-7 score (0-4 normal; 5-9 mild; 10-14 moderate; 15-21 severe): 0 Source: Developed by Drs. Nate Mason, Edie Marcos, Lisandro Quevedo and colleagues, with an educational miriam from [employer]. NOREEN-7 Assessment Billing NOREEN-7 Assessment Tool: NOREEN-7 Assessment 93467 Review of Systems Const Denies chills, Denies headache(s) and Denies weight loss ENT Denies headache(s) Card Denies chest pain, Denies syncope, Denies irregular heart rhythm and Denies dyspnea Resp Denies chest congestion, Denies cough and Denies dyspnea GI Denies abdominal pain, Denies change in stool character, Denies nausea and Denies vomiting Musc Denies deformity and Denies joint swelling Neuro Denies syncope and Denies headache(s) Physical exam (Primary Care) Vital Signs: Last Vital Signs Temp 98.1 F 09/10/24 13:14 Pulse 84 09/10/24 13:14 BP 112/78 09/10/24 13:14 Pulse Ox 97 09/10/24 13:14 Oxygen Delivery Method Room Air 09/10/24 13:14 BMI result Body Mass Index 32.3 Tobacco/Smoking Status: Tobacco use Status Tobacco use date assessed 09/10/24 09/10/24 13:21 Patient Tobacco Use Status Never used Tobacco 09/10/24 13:21 Tobacco use type Cigarette 09/10/24 13:21 e-Cigarette/Vaping Use Never Used 09/10/24 13:21 PHQ-9: PHQ-9 Score PHQ-9: Total score 0 09/10/24 13:21 Depression Screening Interpretation: Negative Thrive Assessment: Date of Thrive Assessment Date Thrive assessed 09/10/24 09/10/24 13:21 Currently or been in a relationship where the following occur: No concerns reported Const General: cooperative, comfortable, no acute distress and alert Neck Neck: Yes no lymphadenopathy Thyroid: Thyroid normal Resp Effort & Inspection: normal respiratory effort Auscultation: clear to auscultation bilaterally Percussion: percussion normal Cardio Jugular venous distension: no JVD Palpation: normal PMI Rate: regular rate Rhythm: regular rhythm Heart sounds: S1 normal heart sound present and S2 normal heart sound present GI Inspection: Yes normal to inspection Palpation (GI): No hepatosplenomegaly present Skin General skin exam: no rashes or lesions noted Extrem General: Yes no clubbing, cyanosis or edema Coding Level of Care Code Est Pt Level 4 (01285) Diagnoses Hyperlipidemia E78.5 Hypertension I10 Type 2 diabetes mellitus with unspecified complications E11.8 Additional Codes NOREEN-7 Assessment Billing - NOREEN-7 Assessment Tool: NOREEN-7 Assessment 15650 ([id number]) PHQ-9 - 00463 - PHQ-9 Billing: Yes ([id number]) Assessment & Plan Assessment & Plan (1) Hyperlipidemia: Code(s): E78.5 - Hyperlipidemia, unspecified Category: Medical Plan: stable; same rx (2) Hypertension: Code(s): I10 - Essential (primary) hypertension Category: Medical Plan: stabkle; same rx (3) Type 2 diabetes mellitus with unspecified complications: Code(s): E11.8 - Type 2 diabetes mellitus with unspecified complications Category: Medical Plan: stable; same rx
--- OUTSIDE RECORDS SUMMARY | 2024-09-10 14:18 | XMS_ITS | Encounter Summary ---
Author Organization [employer] Address [address] [facility] [address] [place] [address] Care Team Providers Care Plan Manager Name Role Phone Daisy Henriquez [facility] Primary Care Provider [phone] Reason for Visit * Reason Onset Date Comments New Patient Appt 01/26/2023 Encounter Details Date Type Department Care Team (Late st Contact Info) Description 01/26/2023 Telephone [facility] MEDICINE [address] [place] [address] Daisy Henriquez [facility] [address] [place] [address] New Patient Appt Social History Tobacco Use [...] that she has already a provider at [facility] Dr. Velarde. * Telephone Encounter - José Miguel Bryson - 01/26/2023 9:45 AM EDT New Patients Par José Miguel Jose called to schedule New patient appt, pt did not answer left voicemail to give a call at [phone]. documented in this encounter Plan of Treatment Not on file documented as of this encounter Visit Diagnoses Not on filedocumented in this encounter Care Teams Plan Manager Relationship Specialty Start Date End Date Daisy Henriquez FNP [address] [place] [phone] PCP - General Family Medicine 09/13/22 03/05/23 documented as of this encounter
--- OUTSIDE RECORDS SUMMARY | 2024-09-10 14:18 | XMS_ITS | Clinical Summary ---
Author Organization [employer] Address [address] [facility] [address] [place] [address] Care Team Providers Care Stove Fitter Name Role Phone Unavailable Primary Care Provider [...] patient's age to complete this topic Insurance [facility] STANDARD [facility]
--- OUTSIDE RECORDS SUMMARY | 2024-09-10 14:18 | XMS_ITS | Encounter Summary ---
Author Organization [employer] Address [address] [facility] [address] [place] [address] Care Team Providers Care Billet Driller Name Role Phone Unavailable Primary Care Provider Unavailabl e Reason for Visit * Reason Comments Med Refill Encounter Details Date Type Department Care Team (Late st Contact Info) Description 04/19/2023 Refill [facility] [address] [place] [address] Ramona Harris MD [address] [place] [address] Diabetes mellitus without complication (CMS/HCC) Social History [...]
== END 2024-09-10 13:30 | disposition home or self-care (01) ==
PROVIDERS: PCP Internal Medicine; Visit Provider Internal Medicine
DX: E78.5 Hyperlipidemia, unspecified (principal); I10 Essential (primary) hypertension; E11.8 Type 2 diabetes mellitus with unspecified complications

== ENCOUNTER → 2024-09-10 13:11 | Outpatient (BNVA) | payer OTHER, SELFPAY | PROVIDERS: PCP Internal Medicine; Visit Provider Internal Medicine | DX: I10 Essential (primary) hypertension (principal); E78.5 Hyperlipidemia, unspecified; E11.8 Type 2 diabetes mellitus with unspecified complications | CPT/HCPCS: 96127; 99212 ==

== ENCOUNTER 2025-01-27 14:29 | Outpatient (AMB) | payer OTHER, SELFPAY ==
--- NOTE | 2025-01-27 14:42 | A.OFFPC_ITS ---
Vital Signs 01/27/25 14:43 Height 4 ft 11 in Weight 164 lb BMI 33.1 BP 118/76 Blood Pressure Location Lt brachial Position Sitting Intake Visit Reasons: F/U YOAN from [employer] Printer Required: No Accompanied by: Self / Same As Patient Allergies No Known Allergies (No Known Allergies*) Allergy (Verified 01/27/25 15:03) Medication List - Last Reconciled 01/27/25 by Shanelle Frausto MD alcohol swabs (Alcohol Prep Pads) 1 pad topical TID aspirin 81 mg PO DAILY atorvastatin 80 mg PO DAILY bisacodyl (Dulcolax (bisacodyl)) 10 mg (2 x 5 mg) PO ONCE 1 day blood pressure monitor (Blood Pressure Kit) As directed blood sugar diagnostic (TrewCapTouch Ultra Test strips) As directed blood-glucose meter (TrewCapTouch Ultra2 Meter) As directed cholecalciferol (vitamin D3) 25 mcg PO DAILY enalapril maleate 2.5 mg PO DAILY escitalopram oxalate 10 mg PO DAILY gabapentin 600 mg PO DAILY hydroxyzine HCl 10 mg PO TID lancets (FreeStyle Lancets) test daily lancets (Biocontroluch Delica Plus Lancet) As directed metformin 500 mg PO DAILY mirtazapine 7.5 mg PO BEDTIME miscellaneous medical supply 1 ea miscellaneous DAILY polyethylene glycol 3350 (Miralax) 238 grams PO ONCE Shower Chair As directed trazodone 100 mg PO BEDTIME Tobacco use date assessed: 01/27/25 Dental Screening Dental Screen Date: 09/10/24 HPI HPI Comments History of Present Illness Details The patient is a 64-year-old female presenting with a wellness check- up. She has a history of diabetes mellitus, which is currently managed with metformin and other medications. Her hemoglobin A1c was recently measured at 6.4%, indicating good control of her diabetes. The patient also has hyperlipidemia, for which she is taking atorvastatin. Her LDL cholesterol was noted to be slightly elevated, and a repeat test is planned in four months. She reports a history of arthritis, which causes her significant discomfort. She uses wrist braces to manage her symptoms, which she lost and needs replacements for. The patient experienced a myocardial infarction in the past and was discharged from care in [place] in 2014. She is currently on aspirin therapy as part of her management plan. Preventative care measures discussed include scheduling a colonoscopy and mammography, as her last colonoscopy was in 2014 and her last mammography was in 2022. She is also due for a pneumonia vaccine and a bone density screening due to her diabetic status. [facility], [facility] Medical History Other and unspecified hyperlipidemia Type 2 diabetes mellitus with unspecified complications Surgical History Hx of tubal ligation History of colonoscopy Previous section History of cholecystectomy Family History Mother Hypertension Thyroid activity decreased Rheumatoid arthritis Father Coronary artery disease Diabetes mellitus Brother Arrhythmia Social History Housing: Apartment Alcohol intake: never Patient Tobacco Use Status: Never used Tobacco e-Cigarette/Vaping Use: Never Used Second Hand Smoke Exposure: No service: No Current occupational status: unemployed Cognitive needs: No Hearing needs: No Vision needs: No Female Reproductive History Menstrual Age of Menarche: 11 Questionnaire Thrive Questionnaire Date Thrive assessed: 09/10/24 NOREEN-7 AMB Questionnaire NOREEN-7 Date NOREEN - 7 assessed: 09/10/24 Source: Developed by Drs. Nate Mason, Edie Marcos, Lisandro Quevedo and colleagues, with an educational miriam from [employer] Review of Systems Const All systems reviewed & are unremarkable except as noted in HPI and below Card Denies chest pain at rest, Denies chest pain with activity, Denies edema, Denies irregular heart rhythm, Denies claudication, Denies dyspnea, Denies dyspnea on exertion, Denies orthopnea, Denies paroxysmal nocturnal dyspnea and Denies slow heart rate Resp Denies cough, Denies dyspnea and Denies dyspnea on exertion GI Denies abdominal pain, Denies change in bowel habits, Denies excessive flatus, Denies nausea and Denies vomiting Denies urinary incontinence, Denies urinary hesitancy and Denies urinary urgency Musc Denies abnormal gait, Denies atrophy, Denies deformity and Denies limited range of motion Skin/Breast Denies bleeding lesions, Denies changing lesions and Denies rash Neuro Denies abnormal gait and Denies lack of coordination Physical exam (Primary Care) Vital Signs: Last Vital Signs BP 118/76 01/27/25 14:43 BMI result Body Mass Index 33.1 BMI Assessment/Plan discussion: High BMI High, discussed plan: lifestyle, weight reduction, dietary and physical activity Tobacco/Smoking Status: Tobacco use Status Tobacco use date assessed 01/27/25 01/27/25 14:54 Patient Tobacco Use Status Never used Tobacco 01/27/25 14:42 Tobacco use type 01/27/25 14:54 e-Cigarette/Vaping Use Never Used 01/27/25 14:42 Thrive Assessment: Date of Thrive Assessment Date Thrive assessed 09/10/24 01/27/25 14:42 Resp Effort & Inspection: normal respiratory effort Auscultation: clear to auscultation bilaterally Cardio Jugular venous distension: no JVD Rate: regular rate Rhythm: regular rhythm Heart sounds: S1 normal heart sound present and S2 normal heart sound present Extrem General: Yes full ROM Results AMB Hemoglobin A1c AMB Hemoglobin A1c 6.4 % Last Edit by BENITO Ferguson on 01/27/25 14:5 5 Results Reviewed Results Reviewed: Laboratory Last Values Hgb A1c (Clinic) 6.4 % (4.0-6.0) H 01/27/25 14:43 Coding Level of Care Code Est Pt Level 4 (18113) Complex EM visit Add On G2211 Diagnoses Atherosclerotic cardiovascular disease I25.10 Type 2 diabetes mellitus with unspecified complications E11.8 Hypertension I10 Hyperlipidemia E78.5 Time Spent (min) 22 Assessment & Plan Assessment & Plan (1) Atherosclerotic cardiovascular disease: Code(s): I25.10 - Atherosclerotic heart disease of kiowa tribe coronary artery without angina pectoris Category: Medical (2) Type 2 diabetes mellitus with unspecified complications: Code(s): E11.8 - Type 2 diabetes mellitus with unspecified complications Category: Medical (3) Hypertension: Code(s): I10 - Essential (primary) hypertension Category: Medical (4) Hyperlipidemia: Code(s): E78.5 - Hyperlipidemia, unspecified Category: Medical Plan The patient will continue her current diabetes management regimen, including metformin, with a follow-up A1c test in four months to monitor control. For hyperlipidemia, atorvastatin will be continued, and a repeat lipid panel is scheduled in four months to reassess LDL levels. Arthritis management includes the use of wrist braces, which will be replaced due to loss, and ongoing pain management strategies will be evaluated. The patient is advised to continue aspirin therapy for cardiovascular protection following her myocardial infarction. Preventative care measures include scheduling a colonoscopy and mammography, as well as administering a pneumonia vaccine and arranging a bone density screening. Patient was informed and verbally consented to the use of an ambient scribe for clinic note documentation during this visit. Orders: Orders AMB Hemoglobin A1c Today E11.8 - Type 2 diabetes mellitus with unspecified complications Vitamin D 25-OH Total 4 Months E55.9 - Vitamin D deficiency, unspecified Comprehensive [facility]. Panel Fast 4 Months E11.8 - Type 2 diabetes mellitus with unspecified complications XR DEXA axial skeleton Today Z78.0 - Asymptomatic menopausal state ECG 12 lead EKG Today I25.10 - Atherosclerotic heart disease of ki[place] tribe coronary artery without angina pectoris Lipid Panel 4 Months E78.5 - Hyperlipidemia, unspecified Microalbumin, Random (w Creat) 4 Months R80.9 - Proteinuria, unspecified MM tomosynthesis screening BI Today Z12.31 - Encounter for screening mammogram for malignant neoplasm of breast Medications: New arm brace (Wrist Brace Medium) As directed 2 ea 0RF G56.03 - Carpal tunnel syndrome, bilateral upper limbs
[2025-01-27 14:43] VITALS: BP 118/76; BMI 33.1
--- OUTSIDE RECORDS SUMMARY | 2025-01-27 15:00 | XMS_ITS | Encounter Summary ---
Author Organization [employer] Address [address] [facility] [address] [place] [address] Care Team Providers Care Lead Cytogenetic Technologist Name Role Phone Unavailable Primary Care Provider Unavailabl e Reason for Visit * Reason Comments Med Refill Encounter Details Date Type Department Care Team (Late st Contact Info) Description 04/19/2023 Refill [facility] [address] [place] [address] Ramona Harris MD [address] [place] [address] Diabetes mellitus without complication (CMS/HCC) Social History [...]
== END 2025-01-27 15:16 | disposition home or self-care (01) ==
LOC: HO.HMCH 14:30
PROVIDERS: PCP Internal Medicine; Visit Provider Internal Medicine
DX: I25.10 Atherosclerotic heart disease of native coronary artery without angina pectoris (principal); E11.8 Type 2 diabetes mellitus with unspecified complications; I10 Essential (primary) hypertension; E78.5 Hyperlipidemia, unspecified

== ENCOUNTER → 2025-01-27 14:29 | Outpatient (BNVA) | payer OTHER, SELFPAY | PROVIDERS: PCP Internal Medicine; Visit Provider Internal Medicine | DX: E11.9 Type 2 diabetes mellitus without complications (principal); E78.5 Hyperlipidemia, unspecified; I25.10 Atherosclerotic heart disease of native coronary artery without angina pectoris; I10 Essential (primary) hypertension; E55.9 Vitamin D deficiency, unspecified; R80.9 Proteinuria, unspecified; Z79.899 Other long term (current) drug therapy | CPT/HCPCS: 83036; 99212 ==

== ENCOUNTER 2025-04-17 12:12 | Outpatient (REF) | payer OTHER, SELFPAY ==
--- NOTE | ~2025-04-17 | MM_ITS ---
EXAMINATION: MM SCREENING DIGITAL BREAST TOMOSYNTHESIS, BILATERAL CLINICAL INFORMATION: Screening. Asymptomatic. COMPARISON: Mammography: Comparison is made with available priors TECHNIQUE: Digital breast mammography with tomosynthesis is performed in both the craniocaudal and mediolateral oblique views along with computer-aided detection (CAD). FINDINGS: The breasts are heterogeneously dense, which may obscure small masses (ACR BI-RADS breast composition Category c). There are no significant masses, abnormal calcifications, or other abnormalities. MM/MM tomosynthesis screening BI IMPRESSION: No mammographic evidence of malignancy. ASSESSMENT: BI-RADS BI-RADS 1 - Negative RECOMMENDATION: Routine annual mammography screening. 1 year F/U This examination should not preclude the clinical evaluation of a suspicious palpable abnormality. This patient's information was entered into a reminder system with a target due date for their next mammogram. Electronically signed by: Jovana Burleson DO 04/21/2025 02:29 PM EDT
--- NOTE | ~2025-04-17 | MM_ITS ---
EXAMINATION: DXA BONE DENSITY AXIAL HISTORY: Z78.0 - Asymptomatic menopausal state TECHNIQUE: Shibumi Dual energy absorptiometry (DEXA) of the lumbar spine, total left hip, and femoral neck was performed. COMPARISON: There are no prior studies for comparison. FINDINGS: The bone mineral density of the lumbar spine is 1.078 g/cm2, corresponding to a T-score of -0.8, and a Z-score of 0.3. This is indicative of normal bone mineral density. The bone mineral density of the left total hip is 0.902 g/cm2, corresponding to a T-score of -0.8, and a Z-score of 0.0. This is indicative of normal bone mineral density. The bone mineral density of the left femoral neck is 0.843 g/cm2, corresponding to a T-score of -1.4, and a Z-score of -0.3. This is indicative of osteopenia. FRACTURE RISK: The FRAX index suggests a risk of major osteoporotic fracture of 4.4%, and of hip fracture 0.4%. MM/XR DEXA axial skeleton IMPRESSION: Based on bone mineral density, and according to World Health Organization (WHO) criteria, the diagnosis is consistent with osteopenia. Statistically, 68% of repeat scans fall within 1 SD (+/- 0.010 g/cm2 for AP spine L1-L4) and 1 SD (+/- 0.012 g/cm2 for femur total) FRAX is a trademark of the [employer]'s [facility] Met[employer] Disease, a World Health Organization (WHO) Collaborating Center. Electronically signed by: Nate Cao MD 04/17/2025 02:30 PM EDT
--- OUTSIDE RECORDS SUMMARY | 2025-04-17 14:27 | XMS_ITS | Encounter Summary ---
Author Organization [employer] Address [address] [facility] [address] [place] [address] Care Team Providers Care Cigar Bander Name Role Phone Daisy Henriquez [facility] Primary Care Provider [phone] Reason for Visit * Reason Onset Date Comments New Patient Appt 01/26/2023 Encounter Details Date Type Department Care Team (Late st Contact Info) Description 01/26/2023 Telephone [facility] [address] [place], [place] [phone] Daisy Henriquez [facility] [address] [place] [address] New Patient Appt Social History Tobacco Use [...] that she has already a provider at [facility] Dr. Velarde. * Telephone Encounter - José Miguel Brsyon - 01/26/2023 9:45 AM EDT New Patients Par José Miguel Jose called to schedule New patient appt, pt did not answer left voicemail to give a call at [phone]. documented in this encounter Plan of Treatment Not on file documented as of this encounter Visit Diagnoses Not on filedocumented in this encounter Care Teams Cigar Bander Relationship Specialty Start Date End Date Daisy Henriquez FNP [address] [place] [id number] PCP - General Family Medicine 09/13/22 03/05/23 documented as of this encounter
--- OUTSIDE RECORDS SUMMARY | 2025-04-17 14:27 | XMS_ITS | Clinical Summary ---
Author Organization [employer] Address [address] [facility] [address] [place] [address] Care Team Providers Care Pulp Mill Team Leader Name Role Phone Unavailable Primary Care Provider [...] 62 09/26/2022 11:13 AM EST Temperature 36.7 C (98.1 F) 09/26/2022 11:13 AM EST Respiratory Rate 16 09/26/2022 11:13 AM EST [...] Panel 1961 SDOH Screening 1961 Sigmoidoscopy 1961 Disability Screening 1961 Diabetes: Foot Exam 1971 Eye Exam [...] Screening 09/26/2023 09/26/2022 COVID-19 Vaccine (2 - 2024-2 6 season) 2025 07/13/2021 Influenza Vaccine (#1) 2025 05/03/2010 HIB Vaccines Aged Out No longer [...] patient's age to complete this topic Meningococcal B Vaccine Aged Out No l onger eligible based on patient's age to complete this topic Meningococcal Vaccine Aged Out No francis gaudencio eligible based on patient's age to complete this topic RSV under 20 months Aged Out No longe r eligible based on patient's age to complete this topic Rotavirus Vaccines Aged Out No longer eligible based on patient's age to complete this topic Insurance [facility] STANDARD [facility] < 65
--- OUTSIDE RECORDS SUMMARY | 2025-04-17 14:27 | XMS_ITS | Encounter Summary ---
Author Organization [employer] Address [address] [facility] 7[address] [place] [address] Care Team Providers Care Electric Bath Attendant Name Role Phone Unavailable Primary Care Provider Unavailabl e Reason for Visit * Reason Comments Med Refill Encounter Details Date Type Department Care Team (Late st Contact Info) Description 04/19/2023 Refill [facility] [address] [place] [address] Ramona Harris MD [address] [place] [address] Diabetes mellitus without complication (CMS/HCC) Social History [...]
--- OUTSIDE RECORDS SUMMARY | 2025-04-17 14:27 | XMS_ITS | Clinical Summary ---
Author Organization [facility] Address [address] [facility] [address] [place] [phone] Phone Care Team Providers Care Deicer Repairer Pneumatic Name Role Phone [place], Welchmario Wyman MD Primary Care Provider Unavailable Allergies No known active allergies Social History Tobacco Use Types Packs/Day Years Used Date Smoking Tobacco: Never Assessed Education Answer Date Recorded Are you interested in more education? Not on quique e 11/26/2022 Are you concerned about learning? Not on file 11/26/2022 No 11/26/2022 No 11/26/2022 Digital Access Answer Date Recorded No 12/25/2022 No 12/25/2022 No 12/25/2022 Reliable internet access at home? Not on file 12/25/2022 Device with a working camera? Not on file Intimate Partner Violence Answer Date R ecorded Are you denied basic needs s uch as food, clothing, or medical care? No 09/07/2022 In the past 12 months have y ou been in a relationship with a person who hurts, threatens, or tries to control you? No 09/07/2022 Are you denied basic needs s uch as food, clothing, or medical care? No 09/07/2022 In the past 12 months have y ou been in a relationship with a person who hurts, threatens, or tries to control you? No 09/07/2022 Comments Unknown Sex and Gender Information Value Date Recorded Sex Assigned at Not on file Legal Sex Female 4:39 AM EST Gender Identity Not on file Sexual Orientation Not on file Last Filed Vital Signs Vital Sign Reading Time Taken Comments Blood Pressure 128/80 09/07/2022 8:43 AM EST Pulse 82 09/07/2022 8:43 AM EST Temperature 37 C (98.6 F) 09/07/2022 8:47 AM EST Respiratory Rate 18 09/07/2022 8:43 AM EST Oxygen Saturation 99% 09/07/2022 8:43 AM EST Inhaled Oxygen Concentration - - Weight - - Height - - Body Mass Index - - Plan of Treatment Health Maintenance Due Date Last Done Comments Adult Td,Tdap Booster 1961 LIPID PANEL 1961 DEPRESSION SCREENING 1973 SMOKING Hx and SMOKELESS TOB ACCO SCREENING 1974 HEPATITIS C SCREENING 1979 HIV ONE-TIME SCREENING (18-6 5 YEARS) 1979 PAP SMEAR 1982 MAMMOGRAM 2001 COLOGUARD 2006 COLONOSCOPY 2006 COLORECTAL CANCER SCREENING 2006 FIT TEST 2006 FOBT 2006 SIGMOIDOSCOPY 2006 VIRTUAL COLONOSCOPY 2006 PNEUMOCOCCAL VACCINES (50+ y ears) (1 of 1 - PCV) 2011 ZOSTER VACCINES (1 of 2) 2011 INFLUENZA VACCINE (#1) 2025 COVID-19 VACCINE ( - 2023-2 5 season) 2025 RSV VACCINE (1 - 1-dose 75+ series) 2036 HEPATITIS A VACCINES Aged Out No long er eligible based on patient's age to complete this topic HIB VACCINES Aged Out No longer eligi ble based on patient's age to complete this topic MENINGOCOCCAL VACCINES (ACWY) Aged Out No longer eligible based on patient's age to complete this topic MENINGOCOCCAL VACCINES (B) Aged Out N o longer eligible based on patient's age to complete this topic Medical Devices Not on file Insurance [facility] ONE CARE MEDICARE [place] [address] [place] [address] [place] [address] [place] [place] [address] MEDICARE REPLACEMENT [facility] C[facility] MEDICARE REPLACEMENT [facility] MEDICARE REPLACEMENT Care Teams Deicer Repairer Pneumatic Relationship Specialty Start Date End Date CenterSallie MD PCP - General 09/07/22 Additional Source Comments The information contained in this document represents components of the legal health record. It is not the complete legal health record.[facility]
== END 2025-04-17 12:13 | disposition home or self-care (01) ==
LOC: HO.MAMMO 12:12
PROVIDERS: Visit Provider Internal Medicine
DX: Z12.31 Encounter for screening mammogram for malignant neoplasm of breast (principal); Z13.820 Encounter for screening for osteoporosis; Z78.0 Asymptomatic menopausal state
CPT/HCPCS: 77063; 77067; 77080

== ENCOUNTER → 2025-04-17 13:00 | Outpatient (BNV) | payer OTHER, SELFPAY | PROVIDERS: Visit Provider Radiology Diagnostic Radiology | DX: E28.39 Other primary ovarian failure (principal) | CPT/HCPCS: 77080 ==

== ENCOUNTER 2025-05-15 09:44 | Outpatient (REF) | payer OTHER, SELFPAY ==
--- NOTE | 2025-05-15 09:49 | ECG_ITS ---
Test Reason : 125.10 Blood Pressure : */* mmHG Vent. Rate : 79 BPM Atrial Rate : 79 BPM P-R Int : 128 ms QRS Dur : 88 ms QT Int : 390 ms P-R-T Axes : 44 31 77 degrees QTcB Int : 447 ms Normal sinus rhythm Low voltage QRS Cannot rule out Inferior infarct , age undetermined Abnormal ECG When compared with ECG of 07-Jul-2019 10:58, No significant change was found Referred By: Shanelle Frausto Electronically Signed By: Jose Blue
--- OUTSIDE RECORDS SUMMARY | 2025-05-15 11:22 | XMS_ITS | Clinical Summary ---
Author Organization [facility] Address [address] [facility] [address] [place] [phone] Phone Care Team Providers Care Supervisor Publications Name Role Phone [place], Syracusemario Wyman MD Primary Care Provider Unavailable Allergies [...] VACCINE (#1) 2025 COVID-19 VACCINE ( - 2024-2 6 season) 2025 RSV VACCINE (1 - 1-dose [...] topic Medical Devices Not on file Insurance [facility] [place] ONE CARE MEDICARE [place] [address] [place] [address] [place] [address] [place] [place] [address] MEDICARE REPLACEMENT [facility] C[facility] MEDICARE REPLACEMENT [facility] MEDICARE REPLACEMENT Care Teams Supervisor Publications Relationship Specialty Start Date End Date CenterSallie MD PCP - General 09/07/22 Additional Source Comments The information contained in this document represents components of the legal health record. It is not the complete legal health record.[facility]
--- OUTSIDE RECORDS SUMMARY | 2025-05-15 11:22 | XMS_ITS | Encounter Summary ---
Author Organization [employer] Address [address] [facility] [address] [place] [address] Care Team Providers Care Dipper And Drier Name Role Phone Unavailable Primary Care Provider Unavailabl e Reason for Visit * Reason Comments Med Refill Encounter Details Date Type Department Care Team (Late st Contact Info) Description 04/19/2023 Refill [facility] [address] [place] [address] Ramona Harris MD [address] [place] [address] Diabetes mellitus without complication (CMS/HCC) Social History [...] Visit Diagnoses Diagnosis Diabetes mellitus without complication (HCC) Type II or unspecified type diabetes mellitus without mention of complication, not stated as uncontrolled documented in this encounter
--- OUTSIDE RECORDS SUMMARY | 2025-05-15 11:22 | XMS_ITS | Clinical Summary ---
Author Organization [employer] Address [address] [facility] [address] [place] [address] Care Team Providers Care Video News Editor Name Role Phone Unavailable Primary Care Provider [...] 500 MG tabletIndications:D iabetes mellitus without complication (HCC) Take 1 tablet (500 mg) by mouth in the morning. 90 tablet 3 3 Active gabapentin (Neurontin) 600 MG tabletIndications:D iabetes mellitus without complication (HCC) Take 1 tablet (600 mg) by mouth [...] patient's age to complete this topic Insurance [facility] STANDARD [facility] CARE < 65
--- OUTSIDE RECORDS SUMMARY | 2025-05-15 11:22 | XMS_ITS | Encounter Summary ---
Author Organization [employer] Address [address] [facility] [address] [place] [address] Care Team Providers Care Family Resource Coordinator Name Role Phone Daisy Henriquez [facility] Primary Care Provider [phone] Reason for Visit * Reason Onset Date Comments New Patient Appt 01/26/2023 Encounter Details Date Type Department Care Team (Late st Contact Info) Description 01/26/2023 Telephone [facility] [address] [place], [place] [phone] Daisy Henriquez [facility] [address] [place] [address] New Patient Appt Social History Tobacco Use [...] that she has already a provider at [facility] Dr. Velarde. * Telephone Encounter - José Miguel Bryson - 01/26/2023 9:45 AM EDT New Patients Par José Miguel Jose called to schedule New patient appt, pt did not answer left voicemail to give a call at [phone]. documented in this encounter Plan of Treatment Not on file documented as of this encounter Visit Diagnoses Not on filedocumented in this encounter Care Teams Family Resource Coordinator Relationship Specialty Start Date End Date Daisy Henriquez FNP [address] [place] [phone] PCP - General Family Medicine 09/13/22 03/05/23 documented as of this encounter
[2025-05-15 11:39] LABS: Alanine Aminotransferase 27 U/L (0-31); Albumin Level 4.8 g/dL (3.5-5.0); Anion Gap 14 (12-20); Aspartate Amino Transferase 25 U/L (5-31); Blood Urea Nitrogen 16 mg/dL (9-16); Calcium 9.8 mg/dL (8.4-10.2); Carbon Dioxide 26 mmol/L (22-29); Chloride 104 mmol/L (96-108); Cholesterol 210 mg/dL (<200); Estimated Glomerular Filt Rate > 60; HDL Cholesterol 67 mg/dL (>40); Potassium 4.0 mmol/L (3.3-5.1); Sodium 140 mmol/L (135-145); Total Protein 8.1 g/dL (6.5-8.0); Triglycerides 93 mg/dL (<150)
[2025-05-15 12:02] LABS: Alkaline Phosphatase 117 U/L (39-117)
[2025-05-15 12:09] LABS: Microalbum/Creatinine Ratio Ur 4.8 ug/mg cr (<30)
== END 2025-05-15 09:45 | disposition home or self-care (01) ==
LOC: HO.LAB 09:44
PROVIDERS: PCP Internal Medicine; Visit Provider Internal Medicine
DX: I25.10 Atherosclerotic heart disease of native coronary artery without angina pectoris (principal); E11.8 Type 2 diabetes mellitus with unspecified complications; E55.9 Vitamin D deficiency, unspecified; E78.5 Hyperlipidemia, unspecified; R80.9 Proteinuria, unspecified
CPT/HCPCS: 36415; 80053; 80061; 82043; 82306; 82570; 93005

== ENCOUNTER → 2025-05-15 09:49 | Outpatient (BNV) | payer OTHER, SELFPAY | PROVIDERS: PCP Internal Medicine; Visit Provider Internal Medicine Cardiovascular Disease | DX: R94.31 Abnormal electrocardiogram [ECG] [EKG] (principal); I25.10 Atherosclerotic heart disease of native coronary artery without angina pectoris | CPT/HCPCS: 93010 ==

== ENCOUNTER 2025-05-28 14:05 | Outpatient (AMB) | payer OTHER, SELFPAY ==
[2025-05-28 14:19] VITALS: BP 130/64; PULSE 88; RESP 18; TEMP 36.1; O2SAT 97; BMI 33.6
--- NOTE | 2025-05-28 14:19 | MHC.PC.OV ---
Vital Signs 05/28/25 14:19 Height 4 ft 11 in Weight 166 lb 4 oz BMI 33.6 BP 130/64 Blood Pressure Location Lt brachial Position Sitting Respiration 18 Pulse 88 Pulse Source Pulse Oximeter Temp 96.9 F Temp Source Temporal Artery Scan Pulse Oximetry (%) 97 Oxygen Delivery Method Room Air Intake Visit Reasons: dm Counterperson Required: No Accompanied by: Self / Same As Patient Allergies No Known Allergies (No Known Allergies*) Allergy (Verified 05/28/25 14:30) Medication List - Last Reconciled 05/28/25 by Shanelle Frausto MD alcohol swabs (Alcohol Prep Pads) 1 pad topical TID arm brace (Wrist Brace Medium) As directed aspirin 81 mg PO DAILY atorvastatin 80 mg PO DAILY bisacodyl (Dulcolax (bisacodyl)) 10 mg (2 x 5 mg) PO ONCE 1 day blood pressure monitor (Blood Pressure Kit) As directed blood sugar diagnostic (OneTouch Ultra Test strips) As directed Once daily blood-glucose meter (P[place]ersuch Ultra2 Meter) As directed cholecalciferol (vitamin D3) 25 mcg PO DAILY enalapril maleate 2.5 mg PO DAILY escitalopram oxalate 10 mg PO DAILY gabapentin 600 mg PO DAILY hydroxyzine HCl 10 mg PO TID lancets (FreeStyle Lancets) test daily lancets (OneTouch Delica Plus Lancet) As directed metformin 500 mg PO DAILY mirtazapine 7.5 mg PO BEDTIME miscellaneous medical supply 1 ea miscellaneous DAILY polyethylene glycol 3350 (Miralax) 238 grams PO ONCE Shower Chair As directed trazodone 100 mg PO BEDTIME Tobacco use date assessed: 05/28/25 Dental Screening Dental Screen Date: 05/28/25 Did you have a dental visit in the last 12 months?: Yes Did you have a dental problem in the last 6 months where you did not have access to dental care?: No Was dental information given to patient?: Patient has dentist HPI HPI Comments History of Present Illness Details The patient is a 64-year-old female presenting for management of chronic conditions and preventative care. Her current medications include aspirin, atorvastatin 80 mg, enalapril 2.5 mg, gabapentin 600 mg, hydroxyzine, metformin 500 mg once daily, and mirtazapine at night. For hyperlipidemia, her cholesterol remains elevated on atorvastatin 80 mg, with a recent LDL of 125 mg/dL against a target of 70 mg/dL. I add Zetia. Regarding diabetes, she is on metformin 500 mg daily and reports her blood sugar has previously risen as high as 416 mg/dL. Her recent fasting labs were reported as good. A1c 6.9 % within goal. The patient was diagnosed with osteopenia following a bone densitometry scan in March. Her vitamin D levels are noted to be slightly low. Family history is notable for vitamin D supplementation among her siblings. For health maintenance, her recent mammogram was normal. [facility] Medical History (Updated 05/28/25 @ 14:41 by Shanelle Frausto MD) Other and unspecified hyperlipidemia Type 2 diabetes mellitus with unspecified complications Surgical History Hx of tubal ligation History of colonoscopy Previous section History of cholecystectomy Family History Mother Hypertension Thyroid activity decreased Rheumatoid arthritis Father Coronary artery disease Diabetes mellitus Brother Arrhythmia Social History Housing: Apartment Alcohol intake: never Patient Tobacco Use Status: Never used Tobacco e-Cigarette/Vaping Use: Never Used Second Hand Smoke Exposure: No service: No Current occupational status: unemployed Cognitive needs: No Hearing needs: No Vision needs: No Female Reproductive History Menstrual Age of Menarche: 11 Questionnaire Thrive Questionnaire Date Thrive assessed: 09/10/24 NOREEN-7 AMB Questionnaire NOREEN-7 Date NOREEN - 7 assessed: 09/10/24 Source: Developed by Drs. Nate Mason, Edie Marcos, Lisandro Quevedo and colleagues, with an educational miriam from [employer]. Review of Systems Const All systems reviewed & are unremarkable except as noted in HPI and below Card Denies chest pain at rest, Denies chest pain with activity, Denies edema, Denies irregular heart rhythm, Denies claudication, Denies dyspnea, Denies dyspnea on exertion, Denies orthopnea, Denies paroxysmal nocturnal dyspnea and Denies slow heart rate Resp Denies cough, Denies dyspnea and Denies dyspnea on exertion Musc Denies abnormal gait, Denies atrophy, Denies deformity and Denies limited range of motion Skin/Breast Denies bleeding lesions, Denies changing lesions and Denies rash Neuro Denies abnormal gait and Denies lack of coordination Physical exam (Primary Care) Vital Signs: Last Vital Signs Temp 96.9 F 05/28/25 14:19 Pulse 88 05/28/25 14:19 Resp 18 05/28/25 14:19 BP 130/64 05/28/25 14:19 Pulse Ox 97 05/28/25 14:19 Oxygen Delivery Method Room Air 05/28/25 14:19 BMI result Body Mass Index 33.6 BMI Assessment/Plan discussion: High BMI High, discussed plan: lifestyle, weight reduction, dietary and physical activity Tobacco/Smoking Status: Tobacco use Status Tobacco use date assessed 05/28/25 05/28/25 14:24 Patient Tobacco Use Status Never used Tobacco 05/28/25 14:24 Tobacco use type 01/27/25 15:16 e-Cigarette/Vaping Use Never Used 05/28/25 14:24 Thrive Assessment: Date of Thrive Assessment Date Thrive assessed 09/10/24 05/28/25 14:24 Resp Effort & Inspection: normal respiratory effort Auscultation: clear to auscultation bilaterally Cardio Jugular venous distension: no JVD Rate: regular rate Rhythm: regular rhythm Heart sounds: S1 normal heart sound present and S2 normal heart sound present Extrem General: Yes full ROM Office Procedures Flu Questionnaire Does the patient have a severe egg allergy?: No Does the patient have severe life threatening allergies?: No Does the patient have a fever or illness today?: No Has the patient ever had Guillain-[place] Syndrome?: No Has the patient ever had any past reaction to a flu shot?: No Results AMB Hemoglobin A1c AMB Hemoglobin A1c 6.9 % Last Edit by Lauren Diallo CMA on 05/28/25 14:47 Immunizations Fluarix [id number] (PF) 45 mcg (15 mcg x 3)/0.5 mL IM syringe Performing Provider: Shanelle Frausto MD Performing [place] [facility] Administered by: BENITO Turpin on 05/28/25 14:39 Dose Route Admin Location Dispensed Lot Number Expiration Date [facility] Manager Academic 0.5 mL IM Left Deltoid 0.5 mL [id number] 01/27/26 [id number] Novomer VIS Given Date VIS Provided VIS Publication Date 05/28/25 Single Vaccine 24 Eligibility Eligibility Date Funding Source Not VFC Eligible 05/28/25 Private pneumoc 20-jeronimo conj-dip cr(PF) 0.5 mL IM syringe Performing Provider: Shanelle Frausto MD [facility] Administered by: BENITO Turpin on 05/28/25 14:39 Dose Route Admin Location Dispensed Lot Number Expiration Date [place] Manager Academic 0.5 mL IM Right Deltoid 0.5 mL [id number] 05/30/26 [employer]ly/[employer] Total Dispensed Waste 0.5 mL 0 % VIS Given Date VIS Provided VIS Publication Date 05/28/25 Single Vaccine 24 Eligibility Eligibility Date Funding Source Not VFC Eligible 05/28/25 Private Coding Level of Care Code Est Pt Level 4 (42986) Complex EM visit Add On G2211 Diagnoses Osteopenia M85.80 Type 2 diabetes mellitus with unspecified complications E11.8 Hypertension I10 Hyperlipidemia E78.5 Time Spent (min) 23 Assessment & Plan Assessment & Plan (1) Osteopenia: Code(s): M85.80 - Other specified disorders of bone density and structure, unspecified site Category: Medical (2) Type 2 diabetes mellitus with unspecified complications: Code(s): E11.8 - Type 2 diabetes mellitus with unspecified complications Category: Medical (3) Hypertension: Code(s): I10 - Essential (primary) hypertension Category: Medical (4) Hyperlipidemia: Code(s): E78.5 - Hyperlipidemia, unspecified Category: Medical Plan Plan 1. Hyperlipidemia The patient's LDL cholesterol remains elevated at 125 mg/dL, above the goal of 70 mg/dL, despite treatment with atorvastatin 80 mg. Plan is to continue atorvastatin and add ezetimibe to her regimen to further lower cholesterol. 2. Type 2 Diabetes Mellitus The patient's HbA1c is 6.9% with good fasting glucose, though she reports episodes of significant hyperglycemia. She will continue her current medication regimen. An in-office A1c test was ordered, and her medications will be increased if the result is greater than 7%. 3. Osteopenia The patient was diagnosed with osteopenia via a bone density scan in March and has slightly low vitamin D levels. She will begin supplementation with calcium and vitamin D. Her next bone densitometry is scheduled for 2026. 4. Health Maintenance The patient received an influenza vaccine and a pneumococcal vaccine during the visit. She was advised that the pneumonia vaccine is a one-time immunization. Orders: Orders AMB Hemoglobin A1c Today Z13.9 - Encounter for screening, unspecified Pneumococcal 20 Immunization Today Z23 - Encounter for immunization Influenza [id number] Immunization Today Z23 - Encounter for immunization Medications: New calcium carbonate-vitamin D3 600 mg-10 mcg (400 unit) 1 cap PO BID 180 caps 1RF 90 days M85.80 - Other specified disorders of bone density and structure, unspecified site ezetimibe 10 mg PO DAILY 90 tabs 1RF 90 days Refilled cholecalciferol (vitamin D3) 25 mcg PO DAILY 90 tabs 2RF R79.89 - Other specified abnormal findings of blood chemistry
--- OUTSIDE RECORDS SUMMARY | 2025-05-28 18:06 | XMS_ITS | Encounter Summary ---
Author Organization [employer] Address [address] [facility] [address] [place] [address] Care Team Providers Care Assistance Representative Name Role Phone Unavailable Primary Care Provider Unavailabl e Reason for Visit * Reason Comments Med Refill Encounter Details Date Type Department Care Team (Late st Contact Info) Description 04/19/2023 Refill [facility] [address] [place] [address] Ramona Harris MD [address] [place] [address] Diabetes mellitus without complication (CMS/HCC) Social History [...]
--- OUTSIDE RECORDS SUMMARY | 2025-05-28 18:06 | XMS_ITS | Clinical Summary ---
Author Organization [employer] Address [address] [facility] [address] [place] [address] Care Team Providers Care Cleaner Furniture Name Role Phone Unavailable Primary Care Provider [...] patient's age to complete this topic Insurance [facility] STANDARD [facility] < 65
--- OUTSIDE RECORDS SUMMARY | 2025-05-28 18:06 | XMS_ITS | Clinical Summary ---
Author Organization [facility] Address [address] [facility] [address] [place] [phone] Phone Care Team Providers Care Company Truck Driver Name Role Phone [place], Blanchardmario Wyman MD Primary Care Provider Unavailable Allergies [...] topic Medical Devices Not on file Insurance [facility] [employer] MEDICARE [place] [address] [place] [address] [place] [address] [place] [address] MEDICARE REPLACEMENT [facility] MEDICARE REPLACEMENT [facility] MEDICARE REPLACEMENT Care Teams Company Truck Driver Relationship Specialty Start Date End Date CenterSallie MD PCP - General 09/07/22 Additional Source Comments The information contained in this document represents components of the legal health record. It is not the complete legal health record.[facility]
--- OUTSIDE RECORDS SUMMARY | 2025-05-28 18:06 | XMS_ITS | Encounter Summary ---
Author Organization [employer] Address [address] [facility] [address] [place] [address] Care Team Providers Care Juvenile Court Judge Name Role Phone aDisy Henriquez [facility] Primary Care Provider [phone] Reason for Visit * Reason Onset Date Comments New Patient Appt 01/26/2023 Encounter Details Date Type Department Care Team (Late st Contact Info) Description 01/26/2023 Telephone [facility] [address] [place], [place] [id number] Daisy Henriquez [facility] [address] [place] [address] New Patient Appt Social History Tobacco Use [...] that she has already a provider at [facility] Dr. Velarde. * Telephone Encounter - José Miguel Bryson - 01/26/2023 9:45 AM EDT New Patients Par José Miguel Jose called to schedule New patient appt, pt did not answer left voicemail to give a call at [phone]. documented in this encounter Plan of Treatment Not on file documented as of this encounter Visit Diagnoses Not on filedocumented in this encounter Care Teams Juvenile Court Judge Relationship Specialty Start Date End Date Daisy Henriquez FNP [address] [place] [id number] PCP - General Family Medicine 09/13/22 03/05/23 documented as of this encounter
== END 2025-05-28 14:41 | disposition home or self-care (01) ==
LOC: HO.HMCH 14:05
PROVIDERS: PCP Internal Medicine; Visit Provider Internal Medicine
DX: M85.80 Other specified disorders of bone density and structure, unspecified site (principal); E11.8 Type 2 diabetes mellitus with unspecified complications; I10 Essential (primary) hypertension; E78.5 Hyperlipidemia, unspecified; Z23 Encounter for immunization; Z13.9 Encounter for screening, unspecified

== ENCOUNTER → 2025-05-28 14:05 | Outpatient (BNVA) | payer OTHER, SELFPAY | PROVIDERS: PCP Internal Medicine; Visit Provider Internal Medicine | DX: E11.9 Type 2 diabetes mellitus without complications (principal); E78.5 Hyperlipidemia, unspecified; M85.80 Other specified disorders of bone density and structure, unspecified site; I10 Essential (primary) hypertension; Z23 Encounter for immunization; E55.9 Vitamin D deficiency, unspecified; Z79.899 Other long term (current) drug therapy | CPT/HCPCS: 83036; 90471; 90472; 90656; 90677; 99212 ==